=== PATIENT | male | born 1965 | race Caucasian/White ===

== ENCOUNTER 2024-11-30 12:54 | Outpatient (REF) | payer OTHER, SELFPAY ==
--- OUTSIDE RECORDS SUMMARY | 2024-01-03 04:15 | XMS_ITS ---
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 Role Phone Marissa Hernandez Primary Care Provid er Unavailable Norman Hussein Unavailable [phone] Albert Lopez [phone] Encounters Encounter Location Date Provider Diagnosis [facility] [address] [address] 01/03/2024 Albert Lopez Plan Of Treatment Next Appt Details Provider Name:Norman Hussein , 01/28/2025 09:45:00 AM, [address], [phone], Progress Notes * Balaji KUDOB:[birth year] (59 yo M)Acc No.[id number]:01/03/2024 Progress Note Patient: Balaji CHASE Provider: Tiffany Vasquez DPM :1965 A ge:58 Y S ex:Male Date:01/03/2024 Address:[address] [place], [place] [id number] Pcp:Marissa prater Subjective: * Chief Complaints: * * Medical History: Objective: * Vitals: Assessment: Plan: * Treatment: * Images: * The named appointment provid er may or may not be the originator of this progress note, and it is not deemed complete until electronically signed by the appointment provider. Sign off status: Pending * Provider: Tiffany Vasquez DPM Date: 03/04/2023 Generated for Roc bansal/Kit/Leidy on: 02:55 PM EDT
--- OUTSIDE RECORDS SUMMARY | 2024-01-03 05:00 | XMS_ITS ---
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 Role Phone Marissa Hernandez Primary Care Provid er Unavailable Keenan Norman Unavailable [phone] Cassie Syed [phone] REASON FOR VISIT HNE Encounters Encounter Location Date Provider Diagnosis [facility] [address] [place] [id number] 01/03/2024 Cassie Syed Plan Of Treatment Next Appt Details Provider Name:Norman Hussein , 01/28/2025 09:45:00 AM, [address], [address], Progress Notes * Balaji KUDOB:[birth year] (59 yo M)Acc No.[id number]:01/03/2024 Progress Note Patient: Balaji CHASE Provider: Jimbo Syed DPM :1965 A ge:58 Y S ex:Male Date:01/03/2024 Address:[address] [place], [place] [id number] Pcp:Marissa prater Subjective: * Chief Complaints: * 1 . HNE. * Medical History: Objective: * Vitals: Assessment: Plan: * Treatment: * Images: * The named appointment provid er may or may not be the originator of this progress note, and it is not deemed complete until electronically signed by the appointment provider. Sign off status: Pending * Provider: Jimbo Syed, PABLO Date: 03/04/2023 Generated for Roc bansal/Kit/Leidy on: 02:55 PM EDT
--- OUTSIDE RECORDS SUMMARY | 2024-11-27 05:00 | XMS_ITS ---
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 Name Role Phone SEUN PAREDES Unavailable [phone] IVETTE MADHAVI Unavailable [phone] Allergies Allergen (clinical drug ingredient) Drug/Non Drug Allergy documented on EMR Reaction Allergy Type Onset Date Status Penicillin Unknown Drug Allergy Active Shellfish (FN) Shellfish-derived Products shortness of breath Drug Allergy Active REASON FOR VISIT pt is here for f/u visit with FMLA paperwork to be filled out Medications Medication SIG (Take, Route, Frequency, Duration) Notes Start Date End Date Status Atorvastatin Calcium 40 MG TAKE 1 TABLET BY MOUTH EVERY DAY; Duration: 90 Active predniSONE 10 MG 5 tablets once a day for 2 days, 4 tablets once a day for 2 days, 3 tablets once a day for 2 days, 2 tablets once a day for 2 days, 1 tablet once a day for 2 days Orally Once a day; Duration: 10 days 10/15/2024 Active Fluticasone Propionate 50 MCG/ACT 1 spray in each nostril Nasally Once a day; Duration: 60 days Active Wixela Inhub 250-50 MCG/ACT 1 puff Inhalation Twice a day; Duration: 30 days Active tiZANidine HCl 4 MG 1/2-1 tablet as need ed for spasm Orally Three times a day; Duration: 10 days 10/15/2024 Active Albuterol Sulfate HFA 108 (90 Base) MCG/ACT 1 puff as needed Inhalation every 4 hrs; Duration: 16 days Active Lisinopril 5 MG 1 tablet Orally Once a day; Duration: 90 days Active Allergy Relief 180 MG 1 tablet as needed Orally Once a day; Duration: 30 Active HumuLIN N 100 UNIT/ML Subcutaneous; Dura tion: 30 Active HumaLOG Mix 75/25 (75-25) 100 UNIT/ML ADMINISTER 60 UNITS UNDER THE SKIN EVERY DAY Subcutaneous; Duration: 83 Active Ibuprofen 800mg q8h Active HumaLOG 100 UNIT/ML Injection; Duration: 28 Active Social History Tobacco Use: Social History Observation Description Date Details (start date - stop date) Never Smoker NA - NA Tobacco Use/Smoking Question Answer Notes Are you a nonsmoker Vital Signs Heart Rate 74 /min 11/27/2024 Blood pressure systolic 128 mm Hg 11/28/19 25 Blood pressure diastolic 82 mm Hg 025 Weight 356.1 lbs 11/27/2024 BMI 49.66 kg/m2 11/27/2024 Height 71 in 11/27/2024 Oximetry 96 % 11/27/2024 Encounters Encounter Location Date Provider Diagnosis [address] [facility] [address] [place] [address] 11/27/2024 MADHAVI STEELE Type 2 diabetes guanako itus without complications E11.9 ; half-way (current) use of insulin Z79.4 ; Essential (primary) hypertension I10 ; Pure hypercholesterolemia E78.00 ; Morbid obesity E66.01 ; PIYUSH (obstructive sleep apnea) G47.33 ; Lumbago with sciatica, left side M54.42 ; Lumbago with sciatica, right side M54.41 ; Encounter for examination of blood pressure without abnormal findings Z01.30 and Seasonal allergic rhinitis, unspecified trigger J30.2 Assessments Encounter Date Diagnosis (ICD Code) Assessment Notes Treatment Notes Treatment Clinical Notes Section Notes 11/27/2024 Type 2 diabetes mellitus without complications (ICD-10 - E11.9) Acute Concerns/Proble m List: 11/27/2024 Patient has been seen for multiple visits in the past for FMLA paperwork We will give him continuous leave October 30, 2024 until December 24, 2024 and likely should be able to return December 25, 2024 to work Scheduled for spinal injections in the upcoming weeks with PSP 1 year DOT card labs reviewed Patient Interested in Coronary Calcium CT, will RX to [facility] Refilled Wixela, Fluticasone Propionate Suspension. _update Cologuard Of note, some information is being carried forward from prior records for informational purposes only and is being cited so that efficiency, safety and quality of the patient's care is not compromised This note was prepared using voice recognition software and direct typing Please excuse inadvertent heel burnisher or typing errors, or uncorrected word substitutions Although every attempt has been made by the provider to proofread this document, occasional misspellings and typographical errors may still be present Due to the previous pandemic, and the use of personal protective equipment (PPE) This may decrease voice recognition accuracy Inadvertent heel burnisher errors may occur 11/27/2024 half-way (current) use of insulin (ICD-10 - Z79.4) Acute Concerns/Proble m List: 11/27/2024 Patient has been seen for multiple visits in the past for FMLA paperwork We will give him continuous leave October 30, 2024 until December 24, 2024 and likely should be able to return December 25, 2024 to work Scheduled for spinal injections in the upcoming weeks with PSP 1 year DOT card labs reviewed Patient Interested [facility]cium [facility], Fluticasone Propionate Suspension. _update Cologuard Of note, some information is being carried forward from prior records for informational purposes only and is being cited so that efficiency, safety and quality of the patient's care is not compromised This note was prepared using voice recognition software and direct typing Please excuse inadvertent heel burnisher or typing errors, or uncorrected word substitutions Although every attempt has been made by the provider to proofread this document, occasional misspellings and typographical errors may still be present Due to the previous pandemic, and the use of personal protective equipment (PPE) This may decrease voice recognition accuracy Inadvertent heel burnisher errors may occur 11/27/2024 Essential (primary) hypertension (ICD-10 - I10) Acute Concerns/Proble m List: 11/27/2024 Patient has been seen for multiple visits in the past for FMLA paperwork We will give him continuous leave October 30, 2024 until December 24, 2024 and likely should be able to return December 25, 2024 to work Scheduled for spinal injections in the upcoming weeks with PSP 1 year DOT card labs reviewed Patient Interested in Coronary Calcium CT, will RX to [facility] Refilled Wixela, Fluticasone Propionate Suspension. _update Cologuard Of note, some information is being carried forward from prior records for informational purposes only and is being cited so that efficiency, safety and quality of the patient's care is not compromised This note was prepared using voice recognition software and direct typing Please excuse inadvertent heel burnisher or typing errors, or uncorrected word substitutions Although every attempt has been made by the provider to proofread this document, occasional misspellings and typographical errors may still be present Due to the previous pandemic, and the use of personal protective equipment (PPE) This may decrease voice recognition accuracy Inadvertent heel burnisher errors may occur 11/27/2024 Pure hypercholesterolemia (ICD-10 - E78.00) Acute Concerns/Proble m List: 11/27/2024 Patient has been seen for multiple visits in the past for FMLA paperwork We will give him continuous leave October 30, 2024 until December 24, 2024 and likely should be able to return December 25, 2024 to work Scheduled for spinal injections in the upcoming weeks with PSP 1 year DOT card labs reviewed Patient Interested in Coronary Calcium CT, will RX to [facility] Refilled Wixela, Fluticasone Propionate Suspension. _update Cologuard Of note, some information is being carried forward from prior records for informational purposes only and is being cited so that efficiency, safety and quality of the patient's care is not compromised This note was prepared using voice recognition software and direct typing Please excuse inadvertent heel burnisher or typing errors, or uncorrected word substitutions Although every attempt has been made by the provider to proofread this document, occasional misspellings and typographical errors may still be present Due to the previous pandemic, and the use of personal protective equipment (PPE) This may decrease voice recognition accuracy Inadvertent heel burnisher errors may occur 11/27/2024 Morbid obesity (ICD- 10 - E66.01) Acute Concerns/Proble m List: 11/27/2024 Patient has been seen for multiple visits in the past for FMLA paperwork We will give him continuous leave October 30, 2024 until December 24, 2024 and likely should be able to return December 25, 2024 to work Scheduled for spinal injections in the upcoming weeks with PSP 1 year DOT card labs reviewed Patient Interested in Coronary Calcium CT, will RX to [facility] Refilled Wixela, Fluticasone Propionate Suspension. _update Cologuard Of note, some information is being carried forward from prior records for informational purposes only and is being cited so that efficiency, safety and quality of the patient's care is not compromised This note was prepared using voice recognition software and direct typing Please excuse inadvertent heel burnisher or typing errors, or uncorrected word substitutions Although every attempt has been made by the provider to proofread this document, occasional misspellings and typographical errors may still be present Due to the previous pandemic, and the use of personal protective equipment (PPE) This may decrease voice recognition accuracy Inadvertent heel burnisher errors may occur 11/27/2024 PIYUSH (obstructive sle ep apnea) (ICD-10 - G47.33) Acute Concerns/Proble m List: 11/27/2024 Patient has been seen for multiple visits in the past for FMLA paperwork We will give him continuous leave October 30, 2024 until December 24, 2024 and likely should be able to return December 25, 2024 to work Scheduled for spinal injections in the upcoming weeks with PSP 1 year DOT card labs reviewed Patient Interested in Coronary Calcium CT[facility], Fluticasone Propionate Suspension. _update Cologuard Of note, some information is being carried forward from prior records for informational purposes only and is being cited so that efficiency, safety and quality of the patient's care is not compromised This note was prepared using voice recognition software and direct typing Please excuse inadvertent heel burnisher or typing errors, or uncorrected word substitutions Although every attempt has been made by the provider to proofread this document, occasional misspellings and typographical errors may still be present Due to the previous pandemic, and the use of personal protective equipment (PPE) This may decrease voice recognition accuracy Inadvertent heel burnisher errors may occur 11/27/2024 Lumbago with sciatic a, left side (ICD-10 - M54.42) Acute Concerns/Proble m List: 11/27/2024 Patient has been seen for multiple visits in the past for FMLA paperwork We will give him continuous leave October 30, 2024 until December 24, 2024 and likely should be able to return December 25, 2024 to work Scheduled for spinal injections in the upcoming weeks with PSP 1 year DOT card labs reviewed Patient Interested in Coronary Calcium CT, will RX to [facility] Refilled Wixela, Fluticasone Propionate Suspension. _update Cologuard Of note, some information is being carried forward from prior records for informational purposes only and is being cited so that efficiency, safety and quality of the patient's care is not compromised This note was prepared using voice recognition software and direct typing Please excuse inadvertent heel burnisher or typing errors, or uncorrected word substitutions Although every attempt has been made by the provider to proofread this document, occasional misspellings and typographical errors may still be present Due to the previous pandemic, and the use of personal protective equipment (PPE) This may decrease voice recognition accuracy Inadvertent heel burnisher errors may occur 11/27/2024 Lumbago with sciatic a, right side (ICD-10 - M54.41) Acute Concerns/Proble m List: 11/27/2024 Patient has been seen for multiple visits in the past for FMLA paperwork We will give him continuous leave October 30, 2024 until December 24, 2024 and likely should be able to return December 25, 2024 to work Scheduled for spinal injections in the upcoming weeks with PSP 1 year DOT card labs reviewed Patient Interested in [facility]ary Calcium CT[facility], Fluticasone Propionate Suspension. _update Cologuard Of note, some information is being carried forward from prior records for informational purposes only and is being cited so that efficiency, safety and quality of the patient's care is not compromised This note was prepared using voice recognition software and direct typing Please excuse inadvertent heel burnisher or typing errors, or uncorrected word substitutions Although every attempt has been made by the provider to proofread this document, occasional misspellings and typographical errors may still be present Due to the previous pandemic, and the use of personal protective equipment (PPE) This may decrease voice recognition accuracy Inadvertent heel burnisher errors may occur 11/27/2024 Encounter for examination of blood pressure without abnormal findings (ICD-10 - Z01.30) Acute Concerns/Proble m List: 11/27/2024 Patient has been seen for multiple visits in the past for FMLA paperwork We will give him continuous leave October 30, 2024 until December 24, 2024 and likely should be able to return December 25, 2024 to work Scheduled for spinal injections in the upcoming weeks with PSP 1 year DOT card labs reviewed Patient Interested in Coronary Calcium CT, will RX to [facility] Refilled Wixela, Fluticasone Propionate Suspension. _update Cologuard Of note, some information is being carried forward from prior records for informational purposes only and is being cited so that efficiency, safety and quality of the patient's care is not compromised This note was prepared using voice recognition software and direct typing Please excuse inadvertent heel burnisher or typing errors, or uncorrected word substitutions Although every attempt has been made by the provider to proofread this document, occasional misspellings and typographical errors may still be present Due to the previous pandemic, and the use of personal protective equipment (PPE) This may decrease voice recognition accuracy Inadvertent heel burnisher errors may occur 11/27/2024 Seasonal allergic rhinitis, unspecified trigger (ICD-10 - J30.2) Acute Concerns/Proble m List: 11/27/2024 Patient has been seen for multiple visits in the past for FMLA paperwork We will give him continuous leave October 30, 2024 until December 24, 2024 and likely should be able to return December 25, 2024 to work Scheduled for spinal injections in the upcoming weeks with PSP 1 year DOT card labs reviewed Patient Interested in Coronary Calcium CT, will RX to [facility] Refilled Wixela, Fluticasone Propionate Suspension. _update Cologuard Of note, some information is being carried forward from prior records for informational purposes only and is being cited so that efficiency, safety and quality of the patient's care is not compromised This note was prepared using voice recognition software and direct typing Please excuse inadvertent heel burnisher or typing errors, or uncorrected word substitutions Although every attempt has been made by the provider to proofread this document, occasional misspellings and typographical errors may still be present Due to the previous pandemic, and the use of personal protective equipment (PPE) This may decrease voice recognition accuracy Inadvertent heel burnisher errors may occur Plan Of Treatment No Information Progress Notes * SAM KUDOB:[birth year] (59 yo M)Acc No.[id number]:11/27/2024 Progress Notes Patient: SAM CHASE Provider: Timbo STEELE NP :1965 A ge:59 Y S ex:Male Date:11/27/2024 Address:[address] [place] [address], [place], [id number] Subjective: * Chief Complaints: * 1 . pt is here for f/u visit with FMLA paperwork to be filled out. * HPI: C onstitutional: Patient is here today for FMLA examination Patient seen and examined. F ull past medical history, social history, family history, allergies and current medications were reviewed and updated. Acute Concerns/Problem List: 11/27/2024 Here today for updated FMLA continuous leave October 30, 2024 until December 24, 2024 He is scheduled to get spinal injections in the upcoming weeks with physiatry/pain mgt PSSP Not interested in neuromodulating agent such as gabapentin or Lyrica He has been treated with steroid tapers, by me, Previously was seen to help Was referred to hand surgery for CTS evaluation He gets DOT examinations through me sees [facility] for bilat knee OA/pain gets injections Orthopedics defer surgery at this time Patient has been making lifestyle modifications, choosing better dietary options, exercising. Refuses to go on medication for weight management and states, Ill do it myself . 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 PIYUSH, Pt states he's compliant with CPAP a few hours at a time a night. HTN, BP stable today, on lisinopril, averages 120-130's/80. Stable in office today at 130/78. DM2, Sees endocriniologist Irasema Castro for DM2. currently on basal, mealtime insulin regimen only I did discuss with him options that are eqm-txxuyur-eniyvfymm including metformin and GLP-1 for weight loss. Blood sugars at home 120-150s, well controlled. HLD: Lipid panel improved with atorvastatin. Interested in Coronary Calcium CT Comprehensive labs June 2024 CBC is stable Renal function electrolytes and LFTs are stable Hemoglobin A1c of 7.6 Total cholesterol 121, LDL 60, HDL 47, triglycerides 69 total PSA 0.97 TSH 1.64 UA mostly unremarkable Vitamin D 19 Social hx: tobacco- occ. cigar use. ETOH- denies. lives with who is a nurse Health Maintenance- Cscope-2021- Cologuard, Negative results. 07/05/2021, due 2024 COVID vax: Giulia + moderna booster Flu- 2024 UTD Shingrix- Defers Diabetic optho- UTD, April 20[address] [facility] Podiatry- UTD, Next appt in Dec 2024. * ROS: A ll Other Systems: Review of Systems (ROS) A ll others negative except those mentioned in HPI. * Medical History: H ypertension, type II diabetes, Allergic rhinitis, Asthma. * Surgical History: l ower back , mason shoulder , right knee , laminectomy . * Hospitalization/Major Diagno stic Procedure: D enies Past Hospitalization. * Family History: F ather: alive. M other: alive. 1 brother(s) , 2 sister(s) . 1 daughter(s) . . mom dm dad dm. * Social History: T obacco Use: T obacco Use/Smoking A re you a n onsmoker. * Medications: T aking Ibuprofen , Notes to Pharmacist: 800mg q8h, Taking HumaLOG 100 UNIT/ML Solution Injection , Taking HumuLIN N 100 UNIT/ML Suspension Subcutaneous , Taking HumaLOG Mix 75/25 (75-25) 100 UNIT/ML Suspension ADMINISTER 60 UNITS UNDER THE SKIN EVERY DAY Subcutaneous , Taking Allergy Relief 180 MG Tablet 1 tablet as needed Orally Once a day , Taking Albuterol Sulfate HFA 108 (90 Base) MCG/ACT Aerosol Solution 1 puff as needed Inhalation every 4 hrs , Taking Lisinopril 5 MG Tablet 1 tablet Orally Once a day , Taking Fluticasone Propionate 50 MCG/ACT Suspension 1 spray in each nostril Nasally Once a day , Taking Wixela Inhub 250-50 MCG/ACT Aerosol Powder Breath Activated 1 puff Inhalation Twice a day , Taking Atorvastatin Calcium 40 MG Tablet TAKE 1 TABLET BY MOUTH EVERY DAY , Taking predniSONE 10 MG Tablet 5 tablets once a day for 2 days, 4 tablets once a day for 2 days, 3 tablets once a day for 2 days, 2 tablets once a day for 2 days, 1 tablet once a day for 2 days Orally Once a day , Taking tiZANidine HCl 4 MG Tablet 1/2-1 tablet as needed for spasm Orally Three times a day , Medication List reviewed and reconciled with the patient * Allergies: P enicillin, Shellfish-derived Products: shortness of breath. Objective: * Vitals: H R:74/min, BP:128/82mm Hg, Wt:356.1lbs, BMI:49.66Index, Ht: 71 in, Oxygen sat %:96%. * Examination: G eneral Examination: GENERAL APPEARANCE: i n no acute distress, well developed, well nourished. H EAD: n ormocephalic, atraumatic. E YES: p upils equal, round, reactive to light and accommodation. E ARS: n ormal. O RAL CAVITY: m ucosa moist. T HROAT: c lear. N NIMESH/THYROID: n nimesh supple, full range of motion, no cervical lymphadenopathy. S KIN: n o suspicious lesions, warm and dry. H EART: n o murmurs, regular rate and rhythm, S1, S2 normal. L UNGS: c lear to auscultation bilaterally. A BDOMEN: n ormal, bowel sounds present, soft, nontender, nondistended. E XTREMITIES: n o clubbing, cyanosis, or edema Limited range of motion, hypertonicity and spasm noted to the left paraspinous region lumbarPositive SLR, Left-sided left-sided Positive Phalen's left hand. N EUROLOGIC: n onfocal, motor strength normal upper and lower extremities, sensory exam intact. ? Assessment: * Assessment: 1. T ype 2 diabetes mellitus without complications - E11.9 2 . L zoey term (current) use of insulin - Z79.4 3 . E ssential (primary) hypertension - I10 4 . P ure hypercholesterolemia - E78.00 5 . M orbid obesity - E66.01 6 . O SA (obstructive sleep apnea) - G47.33 7 . L umbago with sciatica, left side - M54.42 8 . L umbago with sciatica, right side - M54.41 9 . E ncounter for examination of blood pressure without abnormal findings - Z01.30 1 0. S easonal allergic rhinitis, unspecified trigger - J30.2 Acute Concerns/Problem List: 11/27/2024 Patient has been seen for multiple visits in the past for [place] paperwork We will give him continuous leave October 30, 2024 until December 24, 2024 and likely should be able to return December 25, 2024 to work Scheduled for spinal injections in the upcoming weeks with PSP 1 year DOT card labs reviewed Patient Interested in Coronary Calcium CT, will RX to [facility] Refilled Wixela, Fluticasone Propionate Suspension. _update Cologuard Of note, some information is being carried forward from prior records for informational purposes only and is being cited so that efficiency, safety and quality of the patient's care is not compromised This note was prepared using voice recognition software and direct typing Please excuse inadvertent heel burnisher or typing errors, or uncorrected word substitutions Although every attempt has been made by the provider to proofread this document, occasional misspellings and typographical errors may still be present Due to the previous pandemic, and the use of personal protective equipment (PPE) This may decrease voice recognition accuracy Inadvertent heel burnisher errors may occur Plan: * Treatment: * Procedure Codes: 3 074F SYST BP LT 130 MM HG, 3079F DIAST BP 80-89 MM HG * Images: Billing Information: * Visit Code: 19840 Office Visit, Est Pt., Level 4. Modifiers: SA * Procedure Codes: 3074F SYST BP LT 130 MM HG. 3079F DIAST BP 80-89 MM HG. Care Plan Details* * Sign off status: Completed true * Provider: Timbo STEELE NP Date: Generated for Roc bansal/Kit/Leidy on: 02:55 PM EDT History and Physical Notes * HPI (History of Present Illness) Category Sub-Category Detail Notes Category Not es Constitutional Patient is here today for FMLA examination Patient seen and examined. Full past medical history, social history, family history, allergies and current medications were reviewed and updated. Acute Concerns/Problem List: 11/27/2024 Here today for updated FMLA continuous leave October 30, 2024 until December 24, 2024 He is scheduled to get spinal injections in the upcoming weeks with physiatry/pain mgt PSSP Not interested in neuromodulating agent such as gabapentin or Lyrica He has been treated with steroid tapers, by me, Previously was seen to help Was referred to hand surgery for CTS evaluation He gets DOT examinations through me sees [facility] for bilat knee OA/pain gets injections Orthopedics defer surgery at this time Patient has been making lifestyle modifications, choosing better dietary options, exercising. Refuses to go on medication for weight management and states, Ill do it myself . 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 PIYUSH, Pt states he's compliant with CPAP a few hours at a time a night. HTN, BP stable today, on lisinopril, averages 120-130's/80. Stable in office today at 130/78. DM2, Sees endocriniologist Irasema Castro for DM2. currently on basal, mealtime insulin regimen only I did discuss with him options that are [id number] including metformin and GLP-1 for weight loss. Blood sugars at home 120-150s, well controlled. HLD: Lipid panel improved with atorvastatin. Interested in Coronary Calcium CT Comprehensive labs June 2024 CBC is stable Renal function electrolytes and LFTs are stable Hemoglobin A1c of 7.6 Total cholesterol 121, LDL 60, HDL 47, triglycerides 69 total PSA 0.97 TSH 1.64 UA mostly unremarkable Vitamin D 19 Social hx: tobacco- occ. cigar use. ETOH- denies. lives with who is a nurse Health Maintenance- Cscope-2021- Cologuard, Negative results. 07/05/2021, due 2024 COVID vax: Giulia + moderna booster Flu- 2024 UTD Shingrix- Defers Diabetic optho- UTD, April 2024 [facility]- UTD, Next appt in Dec 2024. Examination Category Sub-Category Detail Notes Category Not es General Examination GENERAL APPEARANCE: in no ac igiugig distress, well developed, well nourished HEAD: normocephalic, atrau matic EYES: pupils equal, round, reactive to light and accommodation EARS: normal THROAT: clear NECK/THYROID: neck supple, full ra nge of motion, no cervical lymphadenopathy HEART: no murmurs, regular rate and rhythm, S1, S2 normal LUNGS: clear to auscultatio n bilaterally ABDOMEN: normal, bowel sounds present, soft, nontender, nondistended NEUROLOGIC: nonfocal, motor stre ngth normal upper and lower extremities, sensory exam intact SKIN: no suspicious lesion s, warm and dry EXTREMITIES: no clubbing, cyanosi s, or edema Limited range of motion, hypertonicity and spasm noted to the left paraspinous region lumbarPositive SLR, Left-sided left-sided Positive Phalen's left hand ORAL CAVITY: mucosa moist
--- NOTE | 2024-11-30 | EMG_ITS ---
Chief complaint: Left hand numbness Reason for referral: Evaluate for carpal tunnel versus ulnar neuropathy Referred by: Ivone MYERS Procedure done: Left upper extremity NCS/EMG Precautions and/or limitations: None The limb temperature was monitored continuously and remained between 32-36 degrees C during the performance of the NCS. Ulnar motor NCS was performed with moderate elbow flexion between 70-90 degrees, with across-elbow distance of 10 cm. Nerve Conduction Studies Anti Sensory Summary Table ?Stim Site NR Onset (ms) Norm Onset (ms) Peak (ms) Norm Peak (ms) O-P Amp (?V) Norm O-P Amp Site1 Site2 Delta-0 (ms) Dist (cm) Sandoval (m/s) Norm Sandoval (m/s) Left DorsCutan Anti Sensory (Dorsum 5th MC) Wrist NR Wrist Dorsum 5th MC 0.0 Left Median Anti Sensory (2nd Digit) Wrist ? 4.2 5.2 <3.6 15.4 >10 Wrist 2nd Digit 4.2 14.0 33 Left Radial Anti Sensory (Thumb) Forearm ? 1.6 2.4 <3.1 27.0 Forearm Thumb 1.6 0.0 Left Ulnar Anti Sensory (5th Digit) Wrist ? 2.4 3.2 <3.7 8.8 >15.0 Wrist 5th Digit 2.4 14.0 58 Motor Summary Table ?Stim Site NR Onset (ms) Norm Onset (ms) O-P Amp (mV) Norm O-P Amp iAmp (mV) Amp (1st) (%) Site1 Site2 Delta-0 (ms) Dist (cm) Sandoval (m/s) Norm Sandoval (m/s) Left Median Motor (Abd Poll Brev) Wrist ? 5.1 <3.9 6.4 >4.5 8.0 100.0 Elbow Wrist 4.7 24.0 51 >45 Elbow ? 9.8 3.8 4.7 59.4 Left Ulnar Motor (Abd Dig Minimi) Wrist ? 2.8 <3.0 10.9 >5 12.6 100.0 B Elbow Wrist 4.6 24.5 53 >45 B Elbow ? 7.4 10.2 12.5 93.6 A Elbow B Elbow 1.8 10.0 56 >45 A Elbow ? 9.2 9.9 12.2 90.8 Left Ulnar (FDI) Motor (FDI) Wrist ? 3.8 <3.0 9.2 >5 11.0 100.0 B Elbow Wrist 5.0 25.0 50 >45 B Elbow ? 8.8 8.0 9.7 87.0 A Elbow B Elbow 1.7 10.0 59 >45 A Elbow ? 10.5 8.2 9.7 89.1 EMG ?Side Muscle Nerve Root Ins Act Fibs Psw Amp Dur Poly Recrt Int Pat Comment Left 1stDorInt Ulnar C8-T1 Nml Nml Nml Nml Nml 0 Nml Complete Left FlexCarpiUln Ulnar C8,T1 Nml Nml Nml Nml Nml 0 Nml Complete Left Biceps Musculocut C5-6 Nml Nml Nml Nml Nml 0 Nml Complete Left Triceps Radial C6-7-8 Nml Nml Nml Nml Nml 0 Nml Complete Left Deltoid Axillary C5-6 Nml Nml Nml Nml Nml 0 Nml Complete FINDINGS: Left median motor nerve showed prolonged distal latency, normal amplitude and normal conduction velocity. Left median sensory nerve showed prolonged peak latencies. Left ulnar motor nerve, recording at FDI, showed prolonged distal latency, normal amplitude and normal conduction velocity. Left ulnar sensory nerve showed normal peak latency but small amplitude. Left DUCS showed absent response absent response. All other nerves tested were within normal. Concentric needle EMG was performed in selected muscles of the left upper extremity. Study did not reveal signs of electric abnormalities as shown in the table above. IMPRESSION: 1. This is an abnormal study. 2. There is electrodiagnostic evidence for left moderate-severe median neuropathy at the wrist, consistent with Carpal Tunnel Syndrome. 3. There is electrodiagnostic evidence for left ulnar neuropathy at the elbow or at least proximal to take off of dorsal ulnar cutaneous sensory nerve 4. There is no electrodiagnostic evidence for brachial plexopathy or cervical radiculopathy. Thank you for your kind referral. Carla Clifton MD, DESEAN Board Certified, [place] [employer] and [employer] (ABPMR) Board Certified, [place] Board [employer] Electrodiagnostic Medicine (ABEM) CODIN [id number], 1 extremity MTDD
--- OUTSIDE RECORDS SUMMARY | 2024-11-30 14:55 | XMS_ITS | Clinical Summary ---
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 Active fluticasone propionate (FLONASE) 50 mcg/actuation nasal spray Administer 1 spray into each nostril 1 (one) time each day. Active HumaLOG U-100 Insulin 100 unit/mL injection INJECT 26 TO 33 UNITS UNDER THE SKIN BEFORE SUPPER DIRECTED Active HumuLIN N NPH U-100 Insulin 100 unit/mL injection ADMINISTER 66 UNITS UNDER THE SKIN EVERY NIGHT. Active lisinopriL (PRINIVIL,ZESTR IL) 5 mg tablet 3 Active predniSONE (DELTASONE) 20 mg tablet Take 3 tab by mouth for 2 days, then 2 tab by mouth for 2 days, then 1 tab by mouth for 2 days. Take with food in the morning. 12 tablet 5 Active Additional Information Patient not taking.Reported on 11/07/2024 tiZANidine (ZANAFLEX) 4 mg tablet Take 1 tablet (4 mg total) by mouth 3 (three) times a day if needed for muscle spasms. Do not drive or operate machinery on this medication. 30 tablet Active Encounters Date Type Department Care Team Description 11/07/2024 2:00 PM EDT Consult Orthopedic Surgery - [place] [address] [place] [address] Ivone Hawley PA Numbness and tingling in left hand (Primary Dx) 10/26/2024 2:59 PM EDT - 10/26/2024 11:59 PM EDT [facility] [address] [place] [address] Acute left-sided low back pain without sciatica Discharge Disposition: Home or Self Care 10/26/2024 2:15 PM EDT Office Visit Walk-In Clinic - [address] [phone] Frederic Gamez PA Acute left-sided low back pain without sciatica (Primary Dx) from Last 3 Months Social History Tobacco Use Types Packs/Day Years Used Date Smoking Tobacco: Never Assessed Housing Instability Answer Date Recorde d Are you worried that in the next 2 months you may not have stable housing? Patient declined 10/26/2024 Food Access & Nutrition Answer Date Rec orded Do you have access to a vari ety of food including fruits and vegetables? Patient declined 10/26/2024 Health Literacy Answer Date Recorded How often do you need to hav e someone help you when you read instructions, pamphlets, or other written material from your doctor or pharmacy? Patient declined 10/26/2024 Caregiver: How often do you need to have someone help you when you read instructions, pamphlets, or other written material from your doctor or pharmacy? Not on file 025 Financial Risk Answer Date Recorded How hard is it for you to pa y for the very basics like food, housing, medical care, and air conditioning / heating? Patient declined 10/26/2024 Transportation Answer Date Recorded Has the lack of transportati on kept you from meetings, work, or from getting things needed for daily living? Patient declined 10/26/2024 Has the lack of transportati on kept you from medical appointments or from getting medications? Patient declined 10/26/2024 Social Isolation Answer Date Recorded How often do you feel lonely or isolated from those around you? Patient declined 10/26/2024 Food Risk Answer Date Recorded Within the past 12 months we worried whether our food would run out before we got money to buy more. Never true 10/26/2024 Within the past 12 months th e food we bought just didn't last and we didn't have money to get more. Never true 10/26/2024 Dependent Care Answer Date Recorded Do you need help finding or paying for care for your loved ones. For example, child and family services specialist or elderly care for an older adult? Patient declined 10/26/2024 Education Answer Date Recorded Do you think completing more education or training, like finishing a GED, going to college, or learning a trade, would be helpful for you? Patient declined 10/26/2024 Employment and Income Answer Date Recor ded During the last four weeks, have you been actively looking for work? Patient declined 10/26/2024 Living Situation Answer Date Recorded What is your living situation? Unrecognized valu e 10/26/2024 Sex and Gender Information Value Date Recorded Sex Assigned at Not on file Legal Sex Male 11:36 PM EST Gender Identity Not on file Sexual Orientation Not on file Last Filed Vital Signs Vital Sign Reading Time Taken Comments Blood Pressure 137/74 10/26/2024 2:24 PM EDT Pulse 67 10/26/2024 2:24 PM EDT Temperature 36.7 C (98 F) 10/26/2024 2:24 PM EDT Respiratory Rate - - Oxygen Saturation 99% 10/26/2024 2:24 PM EDT Inhaled Oxygen Concentration - - Weight 154 kg (340 lb) 11/07/2024 1:57 PM EDT Height 182.9 cm (6') 11/07/2024 1:57 PM EDT Body Mass Index 46.11 11/07/2024 1:57 PM EDT Plan of Treatment Health Maintenance Due Date Last Done Comments Colorectal Cancer Screening: Colonoscopy 1964 Diabetes: Annual Foot Exam 1974 Diabetes: Annual Retina Eye Exam 1974 DTaP,Tdap,and Td Vaccines (1 - Tdap) 10/19/1983 Hepatitis A Vaccines (1 of 2 - Risk 2-dose series) 10/19/1983 Pneumococcal Vaccine: 50+ Years (2 of 2 - PCV) 11/02/2008 11/03/2007 RSV Immunization Adult Patients (1 - Risk 50-74 years 1-dose series) 2014 Zoster Vaccines (1 of 2) 2014 HIV Screening 01/10/2022 Hepatitis C Screening 01/10/2022 Depression Screening 02/08/2024 Diabetes: Annual Urine Albumin-Creatinine Ratio (uACR) 06/19/2024 COVID-19 Vaccine (4 - 2024-2 6 season) 2024 11/09/2022, 01/22/2021, 06/20/2020 Influenza Vaccine (#1) 2024 , 11/25/2021 Hepatitis B Vaccines (1 of 3 - Risk 3-dose series) 2024 Diabetes: Blood Sugar Contro l Test (HGBA1C) 12/19/2024 06/18/2024 Diabetes: Annual GFR (Glomerular Filtration Rate) 06/18/2025 06/18/2024 Hypertension/CHF/CAD Annual BMP Blood Test 06/18/2025 06/18/2024 Social Influencers of Health Screening 10/26/2025 10/26/2024 Cholesterol Screening (Lipid Panel) 06/18/2029 06/18/2024 HIB Vaccines Aged Out No longer eligi ble based on patient's age to complete this topic HPV Vaccines Aged Out No longer eligi ble based on patient's age to complete this topic IPV Vaccines Aged Out No longer eligi ble based on patient's age to complete this topic MMR Vaccines Aged Out No longer eligi ble based on patient's age to complete this topic Meningococcal ACWY Vaccine Aged Out N o longer eligible based on patient's age to complete this topic Meningococcal B Vaccine Aged Out No l onger eligible based on patient's age to complete this topic RSV Immunization Patients Under 20 months Aged Out No longer eligible b ased on patient's age to complete this topic Varicella Vaccines Aged Out No longer eligible based on patient's age to complete this topic Procedures Procedure Name Priority Date/Time Associated Diagnosis Comments XR CERVICAL SPINE 2-3 VIEWS Routine 11/07/2024 2:39 PM EDT Numbness and tingling in left hand XR LUMBAR SPINE 4+ VIEWS STAT 10/26/2024 3:09 PM EDT Acute left-sided low back pain without sciatica COMPREHENSIVE METABOLIC PANEL Routine 06/18/2024 3:41 PM EDT Vitamin D deficiency disease Special screening for malignant neoplasms, colon Morbid obesity (CMS/HCC V24, CMS/HCC V28) Essential hypertension, benign Routine general medical examination at a health care facility Obstructive sleep apnea (adult) (pediatric) HEMOGLOBIN A1C Routine 06/18/2024 3:41 PM EDT Vitamin D deficiency disease Special screening for malignant neoplasms, colon Morbid obesity (CMS/HCC V24, CMS/HCC V28) Essential hypertension, benign Routine general medical examination at a health care facility Obstructive sleep apnea (adult) (pediatric) LIPID PANEL WITH REFLEX TO DIRECT LDL Routine 06/18/2024 3:41 PM EDT Vitamin D deficiency disease Special screening for malignant neoplasms, colon Morbid obesity (CMS/HCC V24, CMS/HCC V28) Essential hypertension, benign Routine general medical examination at a health care facility Obstructive sleep apnea (adult) (pediatric) from Last 3 Months or Most Recently Relevant to Health Maintenance Results * XR Cervical Spine 2-3 Views (11/07/2024 2:39 PM EDT) Anatomical Region Laterality Modality Spine, C-spine Computed Radiogr aphy Narrative 11/07/2024 7:31 PM EDT Date of Visit:11/07/2024 Reason for visit: Left hand paresthesias Views: AP lateral oblique cervical spine Comparison: None Findings: Neuroforaminal narrowing bilaterally, osteophyte formation at C6-C7 vertebral heights maintained, mild diffuse arthritic changes Impression: Osteoarthritis cervical spine us Ivone MYERS IMG XR PROCEDURES Final Resul t * XR Lumbar Spine 4+ Views (10/26/2024 3:09 PM EDT) Anatomical Region Laterality Modality Spine, L-spine Radiographic Dian ging 10/26/2024 4:28 PM EDT Narrative 10/26/2024 4:31 PM EDT Lumbosacral spine, 4 views. History acute flare of chronic pain. No prior studies are available for comparison. Vertebral bodies are maintained in height. There is narrowing of the disc spaces at L3-4 L4-5 and L5-S1 levels. There are marginal osteophytes at multiple levels more prominent to the right at L2-3 level and to the left at L3-4 level. There are hypertrophic degenerative changes in the facet joints at L4-5 and L5-S1 levels. No fractures, dislocations or destructive lesions. There are arm degenerative changes in the visualized lower thoracic segment with bridging osteophytes. CONCLUSIONS: Multilevel bony and discs degenerative changes as detailed. -------- FINAL REPORT -------- Dictated By: Dora Shi Dictated Date: 10/26/2024 16:28 ET Assigned Physician: Dora Shi Reviewed and Electronically Signed By: Dora Shi Signed Date: 10/26/2024 16:31 ET Workstation ID: [id number] Transcribed By: Self Edit Transcribed Date: 10/26/2024 16:28 ET Procedure Note Dora Shi MD - 10/26/2024 Lumbosacral spine, 4 views. History acute flare of chronic pain. No prior studies are available for comparison. Vertebral bodies are maintained in height. There is narrowing of the discspaces at L3-4 L4-5 and L5-S1 levels. There are marginal osteophytes atmultiple levels more prominent to the right at L2-3 level and to the leftat L3-4 level. There are hypertrophic degenerative changes in the facetjoints at L4-5 and L5-S1 levels. No fractures, dislocations or destructivelesions. There are arm degenerative changes in the visualized lower thoracicsegment with bridging osteophytes. CONCLUSIONS: Multilevel bony and discs degenerative changes as detailed. -------- FINAL REPORT -------- Dictated By: Dora Shi Dictated Date: 10/26/2024 16:28 ET Assigned Physician: Dora Shi Reviewed and Electronically Signed By: Dora Shi Signed Date: 10/26/2024 16:31 ET Workstation ID: [id number] Transcribed By: Self Edit Transcribed Date: 10/26/2024 16:28 ET us Frederic MYERS IMG XR PROCEDURES Final Re sult * Lipid panel with reflex to direct LDL (06/18/2024 3:41 PM EDT) Cholesterol 121 0 - 200 mg/dL LAB CHEMISTRY METHOD 06/18/2024 5:26 PM EDT [facility] Triglycerides 69 0 - 150 mg/dL LAB CHEMISTRY METHOD 06/18/2024 5:26 PM EDT [facility] HDL 47 >=40 mg/dL LAB CHEMISTRY METHOD 06/18/2024 5:26 PM EDT [facility] LDL Calculated 60 0 - 100 mg/dL LAB CHEMISTRY METHOD 06/18/2024 5:26 PM EDT [facility] VLDL Cholesterol Owen 13.8 mg/dL LAB CHEMISTRY METHOD 06/18/2024 5:26 PM EDT [facility] Non HDL Chol. (LDL+VLDL) 74 <145 mg/dL LAB CHEMISTRY METHOD 06/18/2024 5:26 PM EDT [facility] Chol/HDL Ratio 2.6 0.0 - 4.4 LAB CHEMISTRY METHOD 06/18/2024 5:26 PM EDT [facility] Blood Venous blood specimen / Unknown Venipuncture / Unknown 06/18/2024 3:41 PM EDT 06/18/2024 4:20 PM EDT us Adan Gonzalez TUBE FITTER LAB BLOOD ORDERABLES Final Re sult [facility] [address] [place] [address], [place] [phone] * (ABNORMAL) Hemoglobin A1c (06/18/2024 3:41 PM EDT) Hemoglobin A1C 7.6(H) <6.5 % LAB CHEMISTRY METHOD 06/18/2024 10:19 PM EDT [facility] Mean Bld Glu Estim. 171 mg/dL LAB CHEMISTRY METHOD 06/18/2024 10:19 PM [facility] Blood Venous blood specimen / Unknown Venipuncture / Unknown 06/18/2024 3:41 PM EDT 06/18/2024 4:19 PM EDT us Adan Gonzalez TUBE FITTER LAB BLOOD ORDERABLES Final Re sult [facility] [address] [place] [address], [place] [phone] * (ABNORMAL) Comprehensive metabolic panel (06/18/2024 3:41 PM EDT) [facility] Sodium 141 133 - 145 mmol/L LAB CHEMISTRY METHOD 06/18/2024 5:26 PM [facility] Potassium 4.0 3.5 - 5.5 mmol/L LAB CHEMISTRY METHOD 06/18/2024 5:26 PM [facility] Chloride 107 96 - 110 mmol/L LAB CHEMISTRY METHOD 06/18/2024 5:26 PM [facility] CO2 27 21 - 32 mmol/L LAB CHEMISTRY METHOD 06/18/2024 5:26 PM [facility] Anion Gap 7 3 - 11 LAB CHEMISTRY METHOD 06/18/2024 5:26 PM [facility] Glucose 117(H) 70 - 100 mg/dL LAB CHEMISTRY METHOD 06/18/2024 5:26 PM [facility] BUN 16 5 - 25 mg/dL LAB CHEMISTRY METHOD 06/18/2024 5:26 PM [facility] Creatinine 0.82 0.70 - 1.30 mg/dL LAB CHEMISTRY METHOD 06/18/2024 5:26 PM EDT [facility] eGFR 101 >=60 mL/min/1. 73m2 LAB CHEMISTRY METHOD 06/18/2024 5:26 PM T [facility] Comment:Calculation based on the Chronic Kidney Disease Epidemiology Collaboration (CKD-EPI) equation refit without adjustment for race. BUN/Creatinine Ratio 19.5 LAB CHEMISTRY METHOD 06/18/2024 5:26 PM T [facility] Calcium 9.0 8.5 - 10.5 mg/dL LAB CHEMISTRY METHOD 06/18/2024 5:26 PM [facility] AST (SGOT) 27 10 - 42 unit/L LAB CHEMISTRY METHOD 06/18/2024 5:26 PM [facility] ALT (SGPT) 57 10 - 60 unit/L LAB CHEMISTRY METHOD 06/18/2024 5:26 PM [facility] Alkaline Phosphatase 101 42 - 121 unit/L LAB CHEMISTRY METHOD 06/18/2024 5:26 PM [facility] Total Protein 6.7 6.0 - 8.0 g/dL LAB CHEMISTRY METHOD 06/18/2024 5:26 PM [facility] Albumin 3.6 3.2 - 5.0 g/dL LAB CHEMISTRY METHOD 06/18/2024 5:26 PM [facility] Total Bilirubin 0.6 0.0 - 1.4 mg/dL LAB CHEMISTRY METHOD 06/18/2024 5:26 PM T [facility] Blood Venous blood specimen / Unknown Venipuncture / Unknown 06/18/2024 3:41 PM EDT 06/18/2024 4:20 PM EDT us Adan Gonzalez NP LAB BLOOD ORDERABLES Final Re sult [facility] [address] [place] [address], [place] [phone] from Last 3 Months or Most Recently Relevant to Health Maintenance Insurance [facility] Care Teams Outside Plant 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
--- OUTSIDE RECORDS SUMMARY | 2024-11-30 14:55 | XMS_ITS | Patient Health Record ---
Author Organization [facility] Geronimo Ba Address [address] [place] [address] Care Team Providers Care Digital Cartographer Name Role Phone Marissa Hernandez Primary Care Provid er Unavailable Norman Hussein Unavailable [phone] Albert Lopez Unavailable [phone] Cassie Syed Unavailable [phone] Allergies Allergen (clinical drug ingredient) Drug/Non Drug Allergy documented on EMR Reaction Allergy Type Onset Date Status povidone-iodine Betadine Unknown Drug Allergy A ctive Penicillin cant take Drug Allergy Active Shellfish (FN) Shellfish-derived Products Unknown Drug Allergy Active Reason For Referral No Information Medications Medication SIG (Take, Route, Frequency, Duration) Notes Start Date End Date Status Flonase 50 MCG/ACT 2 sprays Nasally Onc e a day; Duration: 30 day(s) Active Advair Diskus Active Wixela Inhub Active Lisinopril 20 MG 1 tablet Orally Once a day; Duration: 30 day(s) Active HumuLIN N 100 UNIT/ML as directed Subcutaneous Active HumaLOG Mix 75/25 75-25 % as directed Subcutaneous Act yeimy HumuLIN R 100 UNIT/ML as directed Injection Not-Taking Flovent Diskus 50 MCG/BLIST 2 puffs Inhalation Twice a day Not-Taking Lovastatin 40 MG 1 tablet with a meal Orally Once a day; Duration: 30 day(s) Not-Taking Clotrimazole-Betamethas one 1-0.05 % 1 application to affected area Externally Twice a day to affected areas on feet; Duration: 30 days Not-Taki ng Immunizations Vaccine Route Administration Date Status Comme nts Influenza Unknown 12/28/2016 Refused Influenza Unknown 12/27/2017 Refused Influenza Unknown 12/15/2018 Administered Influenza Unknown 11/08/2019 Administered Social History Tobacco Use: Social History Observation Description Date Details (start date - stop date) Never Smoker NA - NA Tobacco Use/Smoking Question Answer Notes Are you a: nonsmoker Additional Findings: Tobacco Non-User Current no n-smoker Alcohol Screen Question Answer Notes Did you have a drink containing alcohol in the p ast year? Yes Points 0 Interpretation Negative Tobacco use other than smoking: Question Answer Notes Are you an other tobacco user? No Problems Problem Type SNOMED Code ICD Code Onset Dates Problem Status W/U Status Risk Notes Problem Type 2 diabetes mellitus with peripheral angiopathy (176256783) Type 2 diabetes mellitus with diabetic peripheral angiopathy without gangrene (E11.51) Active confirmed Q7(A), Q8(2B), Q9(1B,2C) Vital Signs Height 6ft 3in in 01/02/2024 Weight 348 lbs 01/02/2024 BMI 43.49 kg/m2 01/02/2024 Procedures Procedure Date Ordered Date Performed Result Body Sit e 23769-JFLENFF NAIL, 6 OR MORE 01/02/2024 N/A 85824-QKQV SKIN LESIONS, OVER 4 01/02/2024 N/A Encounters Encounter Location Date Provider Diagnosis [facility] [address] [address] 01/02/2024 Normanlottie CastroKeenan Type 2 diabetes mellitus with diabetic peripheral angiopathy without gangrene E11.51 ; Tinea unguium B35.1 ; Pain in right toe(s) M79.674 and Pain in left toe(s) M79.675 Assessments Encounter Date Diagnosis (ICD Code) Assessment Notes Treatment Notes Treatment Clinical Notes Section Notes 01/02/2024 Type 2 diabetes mellitus with diabetic peripheral angiopathy without gangrene (ICD-10 - E11.51) Q7(A), Q8(2B), Q9(1B,2C) 01/02/2024 Tinea unguium (ICD-10 - B35.1) 01/02/2024 Pain in right toe(s) (ICD-10 - M79.674) 01/02/2024 Pain in left toe(s) (ICD-10 - M79.675) Plan Of Treatment Pending Test Test Name Order Date [id number] NAIL, 6 OR MORE 03/18/2011 56778-RPYRADC NAIL, 6 OR MORE 06/22/2011 50639-DKCDZLH NAIL, 6 OR MORE 10/05/2011 98864-BNUBRRJ NAIL, 6 OR MORE 12/28/2011 67097-VVGAVSS NAIL, 6 OR MORE 10/23/2013 04074-PBKFCIX NAIL, 6 OR MORE 10/04/2014 18126-VOMYVDB NAIL, 6 OR MORE 04/01/2015 00741-NYUNGHB NAIL, 6 OR MORE 09/30/2015 02833-VLZKQIE NAIL, 6 OR MORE 04/06/2016 84796-RIGYQTK NAIL, 6 OR MORE 12/28/2016 65834-GVPKANQ NAIL, 6 OR MORE 12/27/2017 52578-HSZXDJY NAIL, 6 OR MORE 06/28/2017 20197-YYPYGAY NAIL, 6 OR MORE 01/02/2024 09684-YLPO SKIN LESIONS, OVER 4 01/02/20 24 54671-AWFP SKIN LESIONS, OVER 4 12/28/19 18 84223-YSCG SKIN LESIONS, OVER 4 06/28/19 19 08262-RBFJ SKIN LESIONS, OVER 4 01/03/20 19 84097-OQIX SKIN LESIONS, OVER 4 07/03/19 20 76117-IUJR SKIN LESIONS, OVER 4 01/15/20 20 72017-CSRZ SKIN LESIONS, OVER 4 12/31/19 21 06888-WCHH SKIN LESIONS, OVER 4 06/29/19 18 15422-DJHY SKIN LESIONS, OVER 4 04/06/19 17 40934-QBPD SKIN LESIONS, OVER 4 12/29/19 17 02741-NIWL SKIN LESIONS, OVER 4 09/30/19 16 72601-TGEG SKIN LESIONS, OVER 4 04/01/19 16 38257-WTTP SKIN LESIONS, OVER 4 10/05/19 15 91875-WJQV SKIN LESIONS, OVER 4 10/24/19 14 32508-RSYA SKIN LESIONS, OVER 4 12/28/19 12 41095-WNNF SKIN LESIONS, OVER 4 10/05/19 12 98382-JRFI SKIN LESIONS, OVER 4 06/22/19 12 22652-PCTJ SKIN LESIONS, OVER 4 03/18/19 12 Next Appt Details Provider Name:Norman Hussein , 01/28/2025 09:45:00 AM, [address] [facility] [place], [address], [place], [address], Insurance Providers Payer Name Payer Address Payer Phone Subscriber Number Group Number Insured Name Patient Relationship to Insured Coverage Start Date Coverage End Date [facility] [address] [place] [address] [id number] Balaji Abrams Self - patient is the insured Medical (General) History Medical History History ICD Code asthma diabetic Surgical History Surgery Date(Month/Year) rotator cuff tear repair 2006 right knee arthroscopy 2000 lumbar laminectomy 2007
--- OUTSIDE RECORDS SUMMARY | 2024-11-30 14:55 | XMS_ITS ---
Author Name [facility] Organization Unknown Care Team Organization Name Specialty Phone Email Start Date End Da te [facility] Srini Mahmood Primary [facility] 08/25/2023 4 [facility] Srini Mahmood [facility] 12/15/2021 4
--- OUTSIDE RECORDS SUMMARY | 2024-11-30 14:55 | XMS_ITS | Patient Health Record ---
Author Organization [facility] [address] Address [address] [place] [address] Care Team Providers Care Assistant Shift Supervisor Name Role Phone MAHMOOD, SEUN Unavailable [phone] DARELLMADHAVI FOREMAN Unavailable [phone] LATONIA LIMAYN Unavailable [phone] Allergies Allergen (clinical drug ingredient) Drug/Non Drug Allergy documented on EMR Reaction Allergy Type Onset Date Status Penicillin Unknown Drug Allergy Active Shellfish (FN) Shellfish-derived Products shortness of breath Drug Allergy Active Results Component Value Reference Range Notes XR LUMBAR SPINE 4+ VIEWS Reviewed date:10/30/2024 03:06:10 PM Interpretation: Performing Lab: Notes/Report: Note See Note [facility], a member of [employer] Patient Name: SAM KU Date of : 1965 Reason for Exam: Acute flare of chronic back pain Exam Date: 10/26/2024 [id number] EST Report Status: Final Ordering Provider: KENYETTA GUERRERO PCP: SEUN MAHMOOD Lumbosacral spine, 4 views. History acute flare [...] discs degenerative changes as detailed. -------- FINAL REPOR T -------- Dictated By: Dora Shi Dictated Date: 10/26/2024 16:28 ET Assigned Physician: Dora Shi Reviewed and Electronically Signed By: Dora Shi Signed Date: 10/26/2024 16:31 ET Workstation ID: [id number] Transcribed By: Self Edit Transcribed Date: 10/26/2024 16:28 ET XR CERVICAL SPINE 2-3 VIEWS Reviewed date:11/08/2024 03:22:19 PM Interpretation: Performing Lab: Notes/Report: Note See Note [facility], a member of [employer] Patient Name: SAM KU Date of : 1965 Reason for Exam: left hand numbness Exam Date: 11/07/2024 [id number] EST Report Status: Final Ordering Provider: FELICIA RESENDEZ PCP: SEUN MAHMOOD Date of Visit:11/07/2024 Reason for visit: Le ft hand paresthesias Views: AP lateral oblique cervical spine Comparison: None Findings: Neuroforaminal narrowing bilaterally, osteophyte formation at C6-C7 vertebral heights maintained, mild diffuse arthritic changes Impression: Osteoarthritis cervical spine URINALYSIS WITH REFLEX MICRO SCOPIC Reviewed date:06/18/2024 04:54:32 PM Interpretation: Performing Lab: Notes/Report: Specific Crescent Urine 1.017 1.003-1.030 pH, Urine 5.5 5.0-8.0 pH Leukocytes, Urine Trace Negative Nitrite, Urine Negative Negative Protein, Urine Negative <=Trace mg/dL Glucose, Urine Negative Negative mg/dL Ketones, Urine Trace Negative mg/dL Urobilinogen, Urine 0.2 0.2-1.0 mg/dL Bilirubin, Urine Negative Negative Blood, Urine Negative Negative RBC, Urine 2.2 0-4 /HPF WBC, Urine 2.4 0-4 /HPF Squamous Epithelial, Urine 63 0-60 /LPF Bacteria, Urine Negative Negative /HPF Hyaline Casts, Urine 0.0 0-3 /LPF PSA TOTAL, FREE AND COMPLEXE D Reviewed date:06/19/2024 07:37:40 AM Interpretation: Performing Lab: Notes/Report: Free PSA is a calculated value. The diagnostic usefulness of % free PSA has not been established in patients with Total PSA below 2.6 or above 10 ng/mL. This test was performed using the Centaur Chemiluminescent method. PSA values obtained with other methods cannot be used interchangeably. PSA 0.97 0.00-4.00 ng/mL PSA, Complexed 0.78 0.00-3.00 ng/mL PSA, Free 0.2 PSA, Free Pct 20.6 >25.0 % HEMOGLOBIN A1C Reviewed date:06/19/2024 07:37:40 AM Interpretation: Performing Lab: Notes/Report: Hemoglobin A1C 7.6 <6.5 % Mean Bld Glu Estim. 171 COMPREHENSIVE METABOLIC PANE L Reviewed date:06/19/2024 07:37:40 AM Interpretation: Performing Lab: Notes/Report: Sodium 141 133-145 mmol/L Potassium 4.0 3.5-5.5 mmol/L Chloride 107 96-110 mmol/L CO2 27 21-32 mmol/L Anion Gap 7 3-11 Glucose 117 70-100 mg/dL BUN 16 5-25 mg/dL Creatinine 0.82 0.70-1.30 mg/dL eGFR 101 >=60 mL/min/1.73m2 Calculation based on the Chronic Kidney Disease Epidemiology Collaboration (CKD-EPI) equation refit without adjustment for race. BUN/Creatinine Ratio 19.5 Calcium 9.0 8.5-10.5 mg/dL AST (SGOT) 27 10-42 unit/L ALT (SGPT) 57 10-60 unit/L Alkaline Phosphatase 101 42-121 unit/L Total Protein 6.7 6.0-8.0 g/dL Albumin 3.6 3.2-5.0 g/dL Total Bilirubin 0.6 0.0-1.4 mg/dL THYROID STIMULATING HORMONE Reviewed date:06/19/2024 07:37:40 AM Interpretation: Performing Lab: Notes/Report: TSH 1.64 0.40-4.00 mcIU/mL VITAMIN D 25 HYDROXY Reviewed date:06/19/2024 07:37:40 AM Interpretation: Performing Lab: Notes/Report: Vit D, 25-Hydroxy 19.8 30.0-80.0 ng/mL LIPID PANEL WITH REFLEX TO D IRECT LDL Reviewed date:06/19/2024 07:37:40 AM Interpretation: Performing Lab: Notes/Report: Cholesterol 121 0-200 mg/dL Triglycerides 69 0-150 mg/dL HDL 47 >=40 mg/dL LDL Calculated 60 0-100 mg/dL VLDL Cholesterol Owen 13.8 Non HDL Chol. (LDL+VLDL) 74 <145 mg/dL Chol/HDL Ratio 2.6 0.0-4.4 CBC WITH AUTO DIFFERENTIAL Reviewed date:06/18/2024 04:54:36 PM Interpretation: Performing Lab: Notes/Report: WBC 10.4 4.8-10.8 K/mcL RBC 4.80 4.50-5.50 M/mcL Hemoglobin 14.0 13.5-17.5 g/dL Hematocrit 42.4 42.0-54.0 % MCV 88.1 79.0-98.0 FL MCH 29.1 27.0-32.0 pcg MCHC 33.0 32.0-37.0 g/dL RDW 13.9 11.0-15.0 % Platelets 219 130-400 K/mcL MPV 10.3 7.0-11.0 FL NRBC 0.0 <1.0 % NRBC Absolute 0.00 <0.10 K/mcL Neutrophils Relative 61.3 Lymphocytes Relative 28.5 Monocytes Relative 7.6 Eosinophils Relative 2.0 Basophils Relative 0.3 Immature Granulocytes Relative 0.3 Neutrophils Absolute 6.39 1.50-7.00 K/mcL Lymphocytes Absolute 2.97 1.00-5.00 K/mcL Monocytes Absolute 0.79 0.20-1.00 K/mcL Eosinophils Absolute 0.21 0.00-0.50 K/mcL Basophils Absolute 0.03 0.00-0.20 K/mcL Immature Granulocytes Absolute 0.03 0.00-0.03 K/mcL Reason For Referral Reason [place] Allergy Diagnosis 1 Seasonal allergic re action (J30.2) Referral Organization [facility] [address] Referring Provider First Name SEUN Referring Provider Last Name MAHMOOD Referring Provider Speciality Internal M edicine Referred Provider Keiht Beaulieu Referred Provider Specialty Allergy/Immu nology General Notes Shania Duff 07/2024 08:24:48 AM > Pt given info phone referral faxed to Clinical Notes Lashawn Perez 11/2024 03:23:28 PM > The office is still working on the June referrals, Lashawn Perez 08/29/2024 03:44:20 PM > refaxed to [phone], Darcy Baker 09/26/2024 03:11:45 PM > Spoke to [facility]. Patient already has an appointment on 01/16/2025 9AM. Referral Priority Routine Reason Diagnosis 1 Left hand paresthesi a (R20.2) Referral Organization [facility] [address] Referring Provider First Name MADHAVI Referring Provider Last Name IVETTE Referring Provider Speciality Internal M edicine Referred Provider Specialty Orthopedic S urgery General Notes DuffDericie 09/2024 11:18:31 AM > Pt given phone [phone] referral faxed to [phone] Referral Priority Routine Medications Medication SIG (Take, Route, Frequency, Duration) [...] Twice a day; Duration: 30 days Active Albuterol Sulfate HFA 108 (90 Base) [...] Duration: 83 Active Ibuprofen 800mg q8h Active tiZANidine HCl 4 MG 1/2-1 tablet as need ed for spasm Orally Three times a day; Duration: 10 days 10/15/2024 Active HumaLOG 100 UNIT/ML Injection; Duration: 28 Active Immunizations Vaccine Route Administration Date Status Comme nts influenza IM Intramuscular 11/25/2021 Administered Influenza, seasonal, injectable, 6-35 months Unknown 11/25/2021 Administered Moderna Covid-19 Vaccine Unknown 01/22/2021 Administere d Social History Tobacco Use: Social History Observation Description Date Details (start date - stop date) Never Smoker NA - NA Tobacco Use/Smoking Question Answer Notes Are you a nonsmoker Problems Problem Type SNOMED Code ICD Code Onset Dates Problem Status W/U Status Risk Notes Problem Type II diabetes mellitus without complication (365882002) Type 2 diabetes mellitus without complications (E11.9) Active confirmed Problem Chronic pain (28152879) Other chronic pain (G89.29) Active confirmed Problem Essential hypertension (73745011) Essential (primary) hypertension (I10) Active confirmed Problem Simple chronic bronchitis (28364693) Simple chronic bronchitis (J41.0) Active confirmed Problem Sciatica (84040388) Lumbago with sciatica, right side (M54.41) Active confirmed Problem Sciatica (20838680) Lumbago with sciatica, left side (M54.42) Active confirmed Problem Long-term current us e of insulin (250995696) terminal clerk (current) use of insulin (Z79.4) Active confirmed Problem Morbid obesity (638362005) Morbid obesity (E66.01) Active confirmed Problem Pure hypercholesterolemia (851772639) Pure hypercholesterolemia (E78.00) Active confirmed Problem Hyperlipidaemia (52521999) Hyperlipidemia, unspecified hyperlipidemia type (E78.5) Active confirmed Problem Hypothyroidism (68829722) Hypothyroidism, unspecified type (E03.9) Active confirmed Problem Vitamin D deficiency (19260522) Vitamin D deficiency (E55.9) Active confirmed Problem Obstructive sleep apnea syndrome (84646961) PIYUSH (obstructive sleep apnea) (G47.33) Active confirmed Problem Seasonal allergic rhinitis (979906340) Seasonal allergic rhinitis, unspecified trigger (J30.2) Active confirmed Problem Radiculopathy (35096913) Back pain with radiculopathy (M54.10) Active confirmed Problem Acute cough (226302895884338635) Acute cough (R05.1) Active confirmed Problem Sciatica (66338682) Acute right- sided low back pain with right-sided sciatica (M54.41) Active confirmed Problem Sciatica (43346063) Acute left-s ided low back pain with left-sided sciatica (M54.42) Active confirmed Problem Skin sensation disturbance (20930744) Left hand paresthesia (R20.2) Active confirmed Problem Sciatica (43027422) Sciatica of left side (M54.32) Active confirmed Problem Influenza A virus (850418399) Influenza A (J10.1) Active confirmed Problem Seasonal allergic rhinitis (417210113) Seasonal allergic reaction (J30.2) Active confirmed Problem Expiratory wheezing (3396226) Expiratory wheezing (R06.2) Active confirmed Problem Visual Disturbance (87588468) Blurry vision, bilateral (H53.8) Active confirmed Vital Signs Heart Rate 74 /min 11/27/2024 Temperature 100 degrees Fahrenheit 04/03/2024 Oximetry 96 % 11/27/2024 Blood pressure diastolic 82 mm Hg 11/27/2024 Height 71 in 11/27/2024 Blood pressure systolic 128 mm Hg 11/27/2024 Weight 356.1 lbs 11/27/2024 BMI 49.66 kg/m2 11/27/2024 Encounters Encounter Location Date Provider Diagnosis [facility] [address] [facility] [address] [place] [address] 04/03/2024 GIOVANNA JANIE Influenza A J10.1 ; Acute cough R05.1 and Blurry vision, bilateral H53.8 [facility] [address] [place] [address] [place] [address] 04/10/2024 GIOVANNA LIMA Acute cough R05.1 an d Expiratory wheezing R06.[address] [facility] [address] [place] [address] 06/16/2024 MADHAVI STEELE Essential (primary) hypertension I10 ; Type 2 diabetes mellitus without complications E11.9 ; Morbid obesity E66.01 ; PIYUSH (obstructive sleep apnea) G47.33 and Vitamin D deficiency E55.9 [facility] [address] [facility] [address] [place] [address] 06/28/2024 MADHAVI STEELE Type 2 diabetes guanako itus without complications E11.9 ; Annual physical exam Z00.00 ; terminal clerk (current) use of insulin Z79.4 ; Essential (primary) hypertension I10 ; Pure hypercholesterolemia E78.00 ; Morbid obesity E66.01 ; PIYUSH (obstructive sleep apnea) G47.33 ; Lumbago with sciatica, left side M54.42 ; Lumbago with sciatica, right side M54.41 ; Encounter for examination of blood pressure without abnormal findings Z01.30 and Seasonal allergic rhinitis, unspecified trigger J30.2 [facility] [address] [address] 10/01/2024 MADHAVI IVETTE Type 2 diabetes guanako itus without complications E11.9 ; 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 Z02.4 ; MCFP (current) use of insulin Z79.4 ; Essential (primary) hypertension I10 ; Pure hypercholesterolemia E78.00 ; Morbid obesity E66.01 ; PIYUSH (obstructive sleep apnea) G47.33 ; Lumbago with sciatica, left side M54.42 ; Lumbago with sciatica, right side M54.41 ; Encounter for examination of blood pressure without abnormal findings Z01.30 and Seasonal allergic rhinitis, unspecified trigger J30.2 [facility] [address] 10/15/2024 MADHAVI STEELE Left hand paresthesi a R20.2 and Acute left-sided low back pain with left-sided sciatica M54.42 [facility] [address] [address] 11/27/2024 MADHAVI STEELE Type 2 diabetes guanako itus without complications E11.9 ; MCFP (current) use of insulin Z79.4 ; Essential (primary) hypertension I10 ; Pure hypercholesterolemia E78.00 ; Morbid obesity E66.01 ; PIYUSH (obstructive sleep apnea) G47.33 ; Lumbago with sciatica, left side M54.42 ; Lumbago with sciatica, right side M54.41 ; Encounter for examination of blood pressure without abnormal findings Z01.30 and Seasonal allergic rhinitis, unspecified trigger J30.2 [facility] [address] [address] 03/06/2024 MADHAVI STEELE [facility] [address] [place] [address] 04/03/2024 MADHAVI STEELE [facility] [address] [address] 04/03/2024 [facility] [address] [address] 04/09/2024 [facility] [address] [facility] [address] [place] [address] 05/17/2024 TALJENNIFER MAHMOOD [facility] [address] [facility] [address] [place] [address] 07/11/2024 TALAL MAHMOOD [facility] [address] [address] 07/13/2024 TALAL MAHMOOD [facility] [address] [address] 10/15/2024 MADHAVI DARELLHOT [facility] [address] [place] [address] 10/22/2024 MADHAVI BORHOT [facility] [address] [address] 10/29/2024 MADHAVI BORHOT [facility] [address] [place] [address] 10/29/2024 MADHAVI BORHOT [facility] [address] [address] 10/31/2024 TALJENNIFER DURHAMAN [facility] [address] [address] 11/20/2024 MADHAVI DARELLHOT Assessments Encounter Date Diagnosis (ICD Code) Assessment Notes Treatment Notes Treatment Clinical Notes Section Notes 04/03/2024 Acute cough (ICD-10 - R05.1) Sam is a 58-year-old male with PMH of insulin-dependent T2DM, HTN, HLD, asthma that presents for evaluation of flulike including nonproductive cough, runny nose, nasal congestion, sore throat, decreased appetite, diarrhea, and fever/chills x 1 day. On presentation patient appears fatigued. Temporal temperature 100F, BP 156/90, patient otherwise vitally stable. The patient coughs frequently throughout the encounter. Physical exam reveals mild erythema of bilateral TMs -no visible purulence/bulging . There is also tonsillar lymphadenopathy bilaterally. Lungs CTA. Exam otherwise WNL. Given acute onset of symptoms likely viral in etiology. Swab for COVID/flu/RSV positive for influenza A. Plan to treat with Tamiflu 75 mg twice daily x 5 days. Given symptom of cough will also treat with benzonatate 200 mg up to 3 times daily as needed. The patient is encouraged to continue his current asthma regimen of Wixela twice daily and albuterol as needed. Discussed the importance of continued symptomatic treatment with rest, fluids, use of Tylenol/ibuprofen , throat lozenges, and use of OTC decongestions as needed. He understands the importance of adequate hydration and eating bland foods such as toast, bananas, broth as tolerated. #Blurry vision: Patient reports associated symptom of blurry vision. On exam, he squints the right eye frequently. Pupils are equal round and reactive to light bilaterally. There is horizontal nystagmus noted with extraocular movements. No focal neurologic deficits. Given patient's comorbidities discussed very low threshold to go to the emergency department including development of significant headache, eye pain, inability to see, confusion, syncope, difficulty talking, or localized weakness. Patient demonstrates understanding. 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 All questions answered to the patient's satisfaction. Patient demonstrates understanding of diagnosis and treatments discussed. Follow-up at next scheduled appointment, sooner should any questions/concern s arise. Case discussed with collaborating physician Gypsy Mahmood who has reviewed the assessment/plan. Chart, medications, labs, and vital signs reviewed. Dictation completed with the use of [employer] voice recognition software, prone to medical misidentification s and grammatical errors. All errors are unintentional. Although the practitioner does try to identify and correct errors, some may be present. Please do not hesitate to contact the practitioner for clarification. 04/03/2024 Influenza A (ICD-10 - J10.1) Sam is a 58-year-old male with PMH of insulin-dependent T2DM, HTN, HLD, asthma that presents for evaluation of flulike including nonproductive cough, runny nose, nasal congestion, sore throat, decreased appetite, diarrhea, and fever/chills x 1 day. On presentation patient appears fatigued. Temporal temperature 100F, BP 156/90, patient otherwise vitally stable. The patient coughs frequently throughout the encounter. Physical exam reveals mild erythema of bilateral TMs -no visible purulence/bulging . There is also tonsillar lymphadenopathy bilaterally. Lungs CTA. Exam otherwise WNL. Given acute onset of symptoms likely viral in etiology. Swab for COVID/flu/RSV positive for influenza A. Plan to treat with Tamiflu 75 mg twice daily x 5 days. Given symptom of cough will also treat with benzonatate 200 mg up to 3 times daily as needed. The patient is encouraged to continue his current asthma regimen of Wixela twice daily and albuterol as needed. Discussed the importance of continued symptomatic treatment with rest, fluids, use of Tylenol/ibuprofen , throat lozenges, and use of OTC decongestions as needed. He understands the importance of adequate hydration and eating bland foods such as toast, bananas, broth as tolerated. #Blurry vision: Patient reports associated symptom of blurry vision. On exam, he squints the right eye frequently. Pupils are equal round and reactive to light bilaterally. There is horizontal nystagmus noted with extraocular movements. No focal neurologic deficits. Given patient's comorbidities discussed very low threshold to go to the emergency department including development of significant headache, eye pain, inability to see, confusion, syncope, difficulty talking, or localized weakness. Patient demonstrates understanding. 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 All questions answered to the patient's satisfaction. Patient demonstrates understanding of diagnosis and treatments discussed. Follow-up at next scheduled appointment, sooner should any questions/concern s arise. Case discussed with collaborating physician Gypsy Mahmood who has reviewed the assessment/plan. Chart, medications, labs, and vital signs reviewed. Dictation completed with the use of [employer] voice recognition software, prone to medical misidentification s and grammatical errors. All errors are unintentional. Although the practitioner does try to identify and correct errors, some may be present. Please do not hesitate to contact the practitioner for clarification. 04/10/2024 Acute cough (ICD-10 - R05.1) Sam is a 58-year-old male with a PMH of insulin-dependent T2DM, HTN, HLD, asthma that presents for evaluation of continued sick symptoms. Patient seen in office 04/03/2024 at which time he tested positive for flu A. Patient completed Tamiflu x 5 days and took Tessalon Perles as needed for cough. Patient reports symptoms have improved however he continues to experience symptoms of fatigue, congestion, and dry cough. Having subjective fever/chills at night.Patient vitally stable on presentation. O2 sat 97%. Physical exam reveals expiratory wheezing in bilateral upper lung fontenot. There are also coarse lung sounds cleared with coughing. Patient coughs throughout exam. Given duration of symptoms and physical exam findings plan to treat with prednisone burst -40 mg daily x 5 days. Will also treat with azithromycin Dosepak. Reviewed proper use and side effects of each medication. Patient is encouraged to continue symptomatic management with rest, fluids, steam, lozenges, and OTC anti-inflammatori es as needed. All questions answered to the patient's satisfaction. Patient demonstrates understanding of diagnosis and treatments discussed. Follow-up at next scheduled appointment, sooner should symptoms not improve or should any questions/concern s arise. Case discussed with collaborating physician Gypsy Mahmood who has reviewed the assessment/plan. Chart, medications, labs, and vital signs reviewed. Dictation completed with the use of [employer] voice recognition software, prone to medical misidentification s and grammatical errors. All errors are unintentional. Although the practitioner does try to identify and correct errors, some may be present. Please do not hesitate to contact the practitioner for clarification. 04/10/2024 Expiratory wheezing (ICD-10 - R06.2) Sam is a 58-year-old male with a PMH of insulin-dependent T2DM, HTN, HLD, asthma that presents for evaluation of continued sick symptoms. Patient seen in office 04/03/2024 at which time he tested positive for flu A. Patient completed Tamiflu x 5 days and took Tessalon Perles as needed for cough. Patient reports symptoms have improved however he continues to experience symptoms of fatigue, congestion, and dry cough. Having subjective fever/chills at night.Patient vitally stable on presentation. O2 sat 97%. Physical exam reveals expiratory wheezing in bilateral upper lung fontenot. There are also coarse lung sounds cleared with coughing. Patient coughs throughout exam. Given duration of symptoms and physical exam findings plan to treat with prednisone burst -40 mg daily x 5 days. Will also treat with azithromycin Dosepak. Reviewed proper use and side effects of each medication. Patient is encouraged to continue symptomatic management with rest, fluids, steam, lozenges, and OTC anti-inflammatori es as needed. All questions answered to the patient's satisfaction. Patient demonstrates understanding of diagnosis and treatments discussed. Follow-up at next scheduled appointment, sooner should symptoms not improve or should any questions/concern s arise. Case discussed with collaborating physician Gypsy Mahmood who has reviewed the assessment/plan. Chart, medications, labs, and vital signs reviewed. Dictation completed with the use of [employer] voice recognition software, prone to medical misidentification s and grammatical errors. All errors are unintentional. Although the practitioner does try to identify and correct errors, some may be present. Please do not hesitate to contact the practitioner for clarification. 06/16/2024 Essential (primary) hypertension (ICD-10 - I10) FMLA paperwork was completed today Time spent 30 minutes Coordination of care, chart review, paperwork filled out and filed in EMR 06/28/2024 Type 2 diabetes mellitus without complications (ICD-10 - E11.9) Acute Concerns/Problem List: 06/28/2024 labs reviewed Patient Interested in Coronary Calcium CT, will RX to [facility] Refilled Wixela, Fluticasone Propionate Suspension. _update Cologuard Of note, some information is being carried forward from prior records for informational purposes only and is being cited so that efficiency, safety and quality of the patient's care is not compromised This note was prepared using voice recognition software and direct typing Please excuse inadvertent mail examiner or typing errors, or uncorrected word substitutions Although every attempt has been made by the provider to proofread this document, occasional misspellings and typographical errors may still be present Due to the previous pandemic, and the use of personal protective equipment (PPE) This may decrease voice recognition accuracy Inadvertent mail examiner errors may occur 06/28/2024 Annual physical exam (ICD-10 - Z00.00) Acute Concerns/Problem List: 06/28/2024 labs reviewed Patient Interested in Coronary Calcium CT, will RX to [facility] Refilled Wixela, Fluticasone Propionate Suspension. _update Cologuard Of note, some information is being carried forward from prior records for informational purposes only and is being cited so that efficiency, safety and quality of the patient's care is not compromised This note was prepared using voice recognition software and direct typing Please excuse inadvertent mail examiner or typing errors, or uncorrected word substitutions Although every attempt has been made by the provider to proofread this document, occasional misspellings and typographical errors may still be present Due to the previous pandemic, and the use of personal protective equipment (PPE) This may decrease voice recognition accuracy Inadvertent mail examiner errors may occur 10/01/2024 Type 2 diabetes mellitus without complications (ICD-10 - E11.9) Acute Concerns/Problem List: 06/28/2024 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 _update Cologuard Of note, some information is being carried forward from prior records for informational purposes only and is being cited so that efficiency, safety and quality of the patient's care is not compromised This note was prepared using voice recognition software and direct typing Please excuse inadvertent mail examiner or typing errors, or uncorrected word substitutions Although every attempt has been made by the provider to proofread this document, occasional misspellings and typographical errors may still be present Due to the previous pandemic, and the use of personal protective equipment (PPE) This may decrease voice recognition accuracy Inadvertent mail examiner errors may occur 10/01/2024 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 _update Cologuard Of note, some information is being carried forward from prior records for informational purposes only and is being cited so that efficiency, safety and quality of the patient's care is not compromised This note was prepared using voice recognition software and direct typing Please excuse inadvertent mail examiner or typing errors, or uncorrected word substitutions Although every attempt has been made by the provider to proofread this document, occasional misspellings and typographical errors may still be present Due to the previous pandemic, and the use of personal protective equipment (PPE) This may decrease voice recognition accuracy Inadvertent mail examiner errors may occur 10/15/2024 Acute left-sided low back pain with left-sided sciatica (ICD-10 - M54.42) Prednisone taper Tizanidine Hand surgery referral likely CTS Encouraged to call [facility] moving forward for any chronic back pain issues Standard medication instructions given surrounding the use of muscle relaxants and steroids Of note, some information is being carried forward from prior records for informational purposes only and is being cited so that efficiency, safety and quality of the patient's care is not compromised This note was prepared using voice recognition software and direct typing Please excuse inadvertent mail examiner or typing errors, or uncorrected word substitutions Although every attempt has been made by the provider to proofread this document, occasional misspellings and typographical errors may still be present Due to the previous pandemic, and the use of personal protective equipment (PPE) This may decrease voice recognition accuracy Inadvertent mail examiner errors may occur 10/15/2024 Left hand paresthesi a (ICD-10 - R20.2) Prednisone taper Tizanidine Hand surgery referral likely CTS Encouraged to call [facility]SP moving forward for any chronic back pain issues Standard medication instructions given surrounding the use of muscle relaxants and steroids Of note, some information is being carried forward from prior records for informational purposes only and is being cited so that efficiency, safety and quality of the patient's care is not compromised This note was prepared using voice recognition software and direct typing Please excuse inadvertent mail examiner or typing errors, or uncorrected word substitutions Although every attempt has been made by the provider to proofread this document, occasional misspellings and typographical errors may still be present Due to the previous pandemic, and the use of personal protective equipment (PPE) This may decrease voice recognition accuracy Inadvertent mail examiner errors may occur 11/27/2024 Type 2 diabetes mellitus without complications (ICD-10 - E11.9) Acute Concerns/Problem List: 11/27/2024 Patient has been seen for multiple visits in the past for FMLA paperwork We will give him continuous leave October 30, 2024 until December 24, 2024 and likely should be able to return December 25, 2024 to work Scheduled for spinal injections in the upcoming weeks with [facility] 1 year DOT card labs reviewed Patient Interested in Coronary Calcium CT, will RX to [facility] Refilled Wixela, Fluticasone Propionate Suspension. _update Cologuard Of note, some information is being carried forward from prior records for informational purposes only and is being cited so that efficiency, safety and quality of the patient's care is not compromised This note was prepared using voice recognition software and direct typing Please excuse inadvertent mail examiner or typing errors, or uncorrected word substitutions Although every attempt has been made by the provider to proofread this document, occasional misspellings and typographical errors may still be present Due to the previous pandemic, and the use of personal protective equipment (PPE) This may decrease voice recognition accuracy Inadvertent mail examiner errors may occur 10/01/2024 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 _update Cologuard Of note, some information is being carried forward from prior records for informational purposes only and is being cited so that efficiency, safety and quality of the patient's care is not compromised This note was prepared using voice recognition software and direct typing Please excuse inadvertent mail examiner or typing errors, or uncorrected word substitutions Although every attempt has been made by the provider to proofread this document, occasional misspellings and typographical errors may still be present Due to the previous pandemic, and the use of personal protective equipment (PPE) This may decrease voice recognition accuracy Inadvertent mail examiner errors may occur 11/27/2024 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 _update Cologuard Of note, some information is being carried forward from prior records for informational purposes only and is being cited so that efficiency, safety and quality of the patient's care is not compromised This note was prepared using voice recognition software and direct typing Please excuse inadvertent mail examiner or typing errors, or uncorrected word substitutions Although every attempt has been made by the provider to proofread this document, occasional misspellings and typographical errors may still be present Due to the previous pandemic, and the use of personal protective equipment (PPE) This may decrease voice recognition accuracy Inadvertent mail examiner errors may occur 06/28/2024 [facility] (current) use of insulin (ICD-10 - Z79.4) Acute Concerns/Problem List: 06/28/2024 labs reviewed Patient Interested in Coronary Calcium CT, will RX to [facility] Refilled Wixela, Fluticasone Propionate Suspension. _update Cologuard Of note, some information is being carried forward from prior records for informational purposes only and is being cited so that efficiency, safety and quality of the patient's care is not compromised This note was prepared using voice recognition software and direct typing Please excuse inadvertent mail examiner or typing errors, or uncorrected word substitutions Although every attempt has been made by the provider to proofread this document, occasional misspellings and typographical errors may still be present Due to the previous pandemic, and the use of personal protective equipment (PPE) This may decrease voice recognition accuracy Inadvertent mail examiner errors may occur 06/16/2024 Type 2 diabetes mellitus without complications (ICD-10 - E11.9) FMLA paperwork was completed today Time spent 30 minutes Coordination of care, chart review, paperwork filled out and filed in EMR 04/03/2024 Blurry vision, bilateral (ICD-10 - H53.8) Sam is a 58-year-old male with PMH of insulin-dependent T2DM, HTN, HLD, asthma that presents for evaluation of flulike including nonproductive cough, runny nose, nasal congestion, sore throat, decreased appetite, diarrhea, and fever/chills x 1 day. On presentation patient appears fatigued. Temporal temperature 100F, BP 156/90, patient otherwise vitally stable. The patient coughs frequently throughout the encounter. Physical exam reveals mild erythema of bilateral TMs -no visible purulence/bulging . There is also tonsillar lymphadenopathy bilaterally. Lungs CTA. Exam otherwise WNL. Given acute onset of symptoms likely viral in etiology. Swab for COVID/flu/RSV positive for influenza A. Plan to treat with Tamiflu 75 mg twice daily x 5 days. Given symptom of cough will also treat with benzonatate 200 mg up to 3 times daily as needed. The patient is encouraged to continue his current asthma regimen of Wixela twice daily and albuterol as needed. Discussed the importance of continued symptomatic treatment with rest, fluids, use of Tylenol/ibuprofen , throat lozenges, and use of OTC decongestions as needed. He understands the importance of adequate hydration and eating bland foods such as toast, bananas, broth as tolerated. #Blurry vision: Patient reports associated symptom of blurry vision. On exam, he squints the right eye frequently. Pupils are equal round and reactive to light bilaterally. There is horizontal nystagmus noted with extraocular movements. No focal neurologic deficits. Given patient's comorbidities discussed very low threshold to go to the emergency department including development of significant headache, eye pain, inability to see, confusion, syncope, difficulty talking, or localized weakness. Patient demonstrates understanding. 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 All questions answered to the patient's satisfaction. Patient demonstrates understanding of diagnosis and treatments discussed. Follow-up at next scheduled appointment, sooner should any questions/concern s arise. Case discussed with collaborating physician Gypsy Mahmood who has reviewed the assessment/plan. Chart, medications, labs, and vital signs reviewed. Dictation completed with the use of [employer] voice recognition software, prone to medical misidentification s and grammatical errors. All errors are unintentional. Although the practitioner does try to identify and correct errors, some may be present. Please do not hesitate to contact the practitioner for clarification. 06/16/2024 Morbid obesity (ICD- 10 - E66.01) [place] paperwork was completed today Time spent 30 minutes Coordination of care, chart review, paperwork filled out and filed in EMR 06/28/2024 Essential (primary) hypertension (ICD-10 - I10) Acute Concerns/Problem List: 06/28/2024 labs reviewed Patient Interested in Coronary Calcium CT, will RX to [facility] Refilled Wixela, Fluticasone Propionate Suspension. _update Cologuard Of note, some information is being carried forward from prior records for informational purposes only and is being cited so that efficiency, safety and quality of the patient's care is not compromised This note was prepared using voice recognition software and direct typing Please excuse inadvertent mail examiner or typing errors, or uncorrected word substitutions Although every attempt has been made by the provider to proofread this document, occasional misspellings and typographical errors may still be present Due to the previous pandemic, and the use of personal protective equipment (PPE) This may decrease voice recognition accuracy Inadvertent mail examiner errors may occur 10/01/2024 Essential (primary) hypertension (ICD-10 - I10) Acute Concerns/Problem List: 06/28/2024 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 _update Cologuard Of note, some information is being carried forward from prior records for informational purposes only and is being cited so that efficiency, safety and quality of the patient's care is not compromised This note was prepared using voice recognition software and direct typing Please excuse inadvertent mail examiner or typing errors, or uncorrected word substitutions Although every attempt has been made by the provider to proofread this document, occasional misspellings and typographical errors may still be present Due to the previous pandemic, and the use of personal protective equipment (PPE) This may decrease voice recognition accuracy Inadvertent mail examiner errors may occur 11/27/2024 Essential (primary) hypertension (ICD-10 - I10) Acute Concerns/Problem List: 11/27/2024 Patient has been [...] in Coronary Calcium CT, will RX to [facility] Refilled Wixela, Fluticasone Propionate Suspension. _update Cologuard Of note, some information is being carried forward from prior records for informational purposes only and is being cited so that efficiency, safety and quality of the patient's care is not compromised This note was prepared using voice recognition software and direct typing Please excuse inadvertent mail examiner or typing errors, or uncorrected word substitutions Although every attempt has been made by the provider to proofread this document, occasional misspellings and typographical errors may still be present Due to the previous pandemic, and the use of personal protective equipment (PPE) This may decrease voice recognition accuracy Inadvertent mail examiner errors may occur 11/27/2024 Pure hypercholesterolemia (ICD-10 - E78.00) Acute Concerns/Problem List: 11/27/2024 Patient has been [...] in Coronary Calcium CT, will RX to [facility] Refilled Wixela, Fluticasone Propionate Suspension. _update Cologuard Of note, some information is being carried forward from prior records for informational purposes only and is being cited so that efficiency, safety and quality of the patient's care is not compromised This note was prepared using voice recognition software and direct typing Please excuse inadvertent mail examiner or typing errors, or uncorrected word substitutions Although every attempt has been made by the provider to proofread this document, occasional misspellings and typographical errors may still be present Due to the previous pandemic, and the use of personal protective equipment (PPE) This may decrease voice recognition accuracy Inadvertent mail examiner errors may occur 10/01/2024 Pure hypercholesterolemia (ICD-10 - E78.00) Acute Concerns/Problem List: 06/28/2024 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 _update Cologuard Of note, some information is being carried forward from prior records for informational purposes only and is being cited so that efficiency, safety and quality of the patient's care is not compromised This note was prepared using voice recognition software and direct typing Please excuse inadvertent mail examiner or typing errors, or uncorrected word substitutions Although every attempt has been made by the provider to proofread this document, occasional misspellings and typographical errors may still be present Due to the previous pandemic, and the use of personal protective equipment (PPE) This may decrease voice recognition accuracy Inadvertent mail examiner errors may occur 06/16/2024 PIYUSH (obstructive sle ep apnea) (ICD-10 - G47.33) FMLA paperwork was completed today Time spent 30 minutes Coordination of care, chart review, paperwork filled out and filed in EMR 06/28/2024 Pure hypercholesterolemia (ICD-10 - E78.00) Acute Concerns/Problem List: 06/28/2024 labs reviewed Patient Interested in Coronary Calcium CT, will RX to [facility] Refilled Wixela, Fluticasone Propionate Suspension. _update Cologuard Of note, some information is being carried forward from prior records for informational purposes only and is being cited so that efficiency, safety and quality of the patient's care is not compromised This note was prepared using voice recognition software and direct typing Please excuse inadvertent mail examiner or typing errors, or uncorrected word substitutions Although every attempt has been made by the provider to proofread this document, occasional misspellings and typographical errors may still be present Due to the previous pandemic, and the use of personal protective equipment (PPE) This may decrease voice recognition accuracy Inadvertent mail examiner errors may occur 06/28/2024 Morbid obesity (ICD- 10 - E66.01) Acute Concerns/Problem List: 06/28/2024 labs reviewed Patient Interested in Coronary Calcium CT, will RX to [facility] Refilled Wixela, Fluticasone Propionate Suspension. _update Cologuard Of note, some information is being carried forward from prior records for informational purposes only and is being cited so that efficiency, safety and quality of the patient's care is not compromised This note was prepared using voice recognition software and direct typing Please excuse inadvertent mail examiner or typing errors, or uncorrected word substitutions Although every attempt has been made by the provider to proofread this document, occasional misspellings and typographical errors may still be present Due to the previous pandemic, and the use of personal protective equipment (PPE) This may decrease voice recognition accuracy Inadvertent mail examiner errors may occur 06/16/2024 Vitamin D deficiency (ICD-10 - E55.9) FMLA paperwork was completed today Time spent 30 minutes Coordination of care, chart review, paperwork filled out and filed in EMR 11/27/2024 Morbid obesity (ICD- 10 - E66.01) Acute Concerns/Problem List: 11/27/2024 Patient has been [...] in Coronary Calcium CT, will RX to [facility] Refilled Wixela, Fluticasone Propionate Suspension. _update Cologuard Of note, some information is being carried forward from prior records for informational purposes only and is being cited so that efficiency, safety and quality of the patient's care is not compromised This note was prepared using voice recognition software and direct typing Please excuse inadvertent mail examiner or typing errors, or uncorrected word substitutions Although every attempt has been made by the provider to proofread this document, occasional misspellings and typographical errors may still be present Due to the previous pandemic, and the use of personal protective equipment (PPE) This may decrease voice recognition accuracy Inadvertent mail examiner errors may occur 10/01/2024 Morbid obesity (ICD- 10 - E66.01) Acute Concerns/Problem List: 06/28/2024 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 _update Cologuard Of note, some information is being carried forward from prior records for informational purposes only and is being cited so that efficiency, safety and quality of the patient's care is not compromised This note was prepared using voice recognition software and direct typing Please excuse inadvertent mail examiner or typing errors, or uncorrected word substitutions Although every attempt has been made by the provider to proofread this document, occasional misspellings and typographical errors may still be present Due to the previous pandemic, and the use of personal protective equipment (PPE) This may decrease voice recognition accuracy Inadvertent mail examiner errors may occur 11/27/2024 PIYUSH (obstructive sle ep apnea) (ICD-10 - G47.33) Acute Concerns/Problem List: 11/27/2024 Patient has been [...] in Coronary Calcium CT, will RX to [facility] Refilled Wixela, Fluticasone Propionate Suspension. _update Cologuard Of note, some information is being carried forward from prior records for informational purposes only and is being cited so that efficiency, safety and quality of the patient's care is not compromised This note was prepared using voice recognition software and direct typing Please excuse inadvertent mail examiner or typing errors, or uncorrected word substitutions Although every attempt has been made by the provider to proofread this document, occasional misspellings and typographical errors may still be present Due to the previous pandemic, and the use of personal protective equipment (PPE) This may decrease voice recognition accuracy Inadvertent mail examiner errors may occur 10/01/2024 PIYUSH (obstructive sle ep apnea) (ICD-10 - G47.33) Acute Concerns/Problem List: 06/28/2024 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 _update Cologuard Of note, some information is being carried forward from prior records for informational purposes only and is being cited so that efficiency, safety and quality of the patient's care is not compromised This note was prepared using voice recognition software and direct typing Please excuse inadvertent mail examiner or typing errors, or uncorrected word substitutions Although every attempt has been made by the provider to proofread this document, occasional misspellings and typographical errors may still be present Due to the previous pandemic, and the use of personal protective equipment (PPE) This may decrease voice recognition accuracy Inadvertent mail examiner errors may occur 06/28/2024 PIYUSH (obstructive sle ep apnea) (ICD-10 - G47.33) Acute Concerns/Problem List: 06/28/2024 labs reviewed Patient Interested in Coronary Calcium CT, will RX to [facility] Refilled Wixela, Fluticasone Propionate Suspension. _update Cologuard Of note, some information is being carried forward from prior records for informational purposes only and is being cited so that efficiency, safety and quality of the patient's care is not compromised This note was prepared using voice recognition software and direct typing Please excuse inadvertent mail examiner or typing errors, or uncorrected word substitutions Although every attempt has been made by the provider to proofread this document, occasional misspellings and typographical errors may still be present Due to the previous pandemic, and the use of personal protective equipment (PPE) This may decrease voice recognition accuracy Inadvertent mail examiner errors may occur 06/28/2024 Lumbago with sciatic a, left side (ICD-10 - M54.42) Acute Concerns/Problem List: 06/28/2024 labs reviewed Patient Interested in Coronary Calcium CT, will RX to [facility] Refilled Wixela, Fluticasone Propionate Suspension. _update Cologuard Of note, some information is being carried forward from prior records for informational purposes only and is being cited so that efficiency, safety and quality of the patient's care is not compromised This note was prepared using voice recognition software and direct typing Please excuse inadvertent mail examiner or typing errors, or uncorrected word substitutions Although every attempt has been made by the provider to proofread this document, occasional misspellings and typographical errors may still be present Due to the previous pandemic, and the use of personal protective equipment (PPE) This may decrease voice recognition accuracy Inadvertent mail examiner errors may occur 11/27/2024 Lumbago with sciatic a, left side (ICD-10 - M54.42) Acute Concerns/Problem List: 11/27/2024 Patient has been [...] in Coronary [place]cium CT, will RX to [facility] [place] Refilled Wixela, Fluticasone Propionate Suspension. _update Cologuard Of note, some information is being carried forward from prior records for informational purposes only and is being cited so that efficiency, safety and quality of the patient's care is not compromised This note was prepared using voice recognition software and direct typing Please excuse inadvertent mail examiner or typing errors, or uncorrected word substitutions Although every attempt has been made by the provider to proofread this document, occasional misspellings and typographical errors may still be present Due to the previous pandemic, and the use of personal protective equipment (PPE) This may decrease voice recognition accuracy Inadvertent mail examiner errors may occur 10/01/2024 Lumbago with sciatic a, left side (ICD-10 - M54.42) Acute Concerns/Problem List: 06/28/2024 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 _update Cologuard Of note, some information is being carried forward from prior records for informational purposes only and is being cited so that efficiency, safety and quality of the patient's care is not compromised This note was prepared using voice recognition software and direct typing Please excuse inadvertent mail examiner or typing errors, or uncorrected word substitutions Although every attempt has been made by the provider to proofread this document, occasional misspellings and typographical errors may still be present Due to the previous pandemic, and the use of personal protective equipment (PPE) This may decrease voice recognition accuracy Inadvertent mail examiner errors may occur 11/27/2024 Lumbago with sciatic a, right side (ICD-10 - M54.41) Acute Concerns/Problem List: 11/27/2024 Patient has been [...] in Coronary Calcium CT, will RX to [facility] [place] Refilled Wixela, Fluticasone Propionate Suspension. _update Cologuard Of note, some information is being carried forward from prior records for informational purposes only and is being cited so that efficiency, safety and quality of the patient's care is not compromised This note was prepared using voice recognition software and direct typing Please excuse inadvertent mail examiner or typing errors, or uncorrected word substitutions Although every attempt has been made by the provider to proofread this document, occasional misspellings and typographical errors may still be present Due to the previous pandemic, and the use of personal protective equipment (PPE) This may decrease voice recognition accuracy Inadvertent mail examiner errors may occur 06/28/2024 Lumbago with sciatic a, right side (ICD-10 - M54.41) Acute Concerns/Problem List: 06/28/2024 labs reviewed Patient Interested in Coronary Calcium CT, will RX to [facility] [place] Refilled Wixela, Fluticasone Propionate Suspension. _update Cologuard Of note, some information is being carried forward from prior records for informational purposes only and is being cited so that efficiency, safety and quality of the patient's care is not compromised This note was prepared using voice recognition software and direct typing Please excuse inadvertent mail examiner or typing errors, or uncorrected word substitutions Although every attempt has been made by the provider to proofread this document, occasional misspellings and typographical errors may still be present Due to the previous pandemic, and the use of personal protective equipment (PPE) This may decrease voice recognition accuracy Inadvertent mail examiner errors may occur 10/01/2024 Lumbago with sciatic a, right side (ICD-10 - M54.41) Acute Concerns/Problem List: 06/28/2024 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 _update Cologuard Of note, some information is being carried forward from prior records for informational purposes only and is being cited so that efficiency, safety and quality of the patient's care is not compromised This note was prepared using voice recognition software and direct typing Please excuse inadvertent mail examiner or typing errors, or uncorrected word substitutions Although every attempt has been made by the provider to proofread this document, occasional misspellings and typographical errors may still be present Due to the previous pandemic, and the use of personal protective equipment (PPE) This may decrease voice recognition accuracy Inadvertent mail examiner errors may occur 06/28/2024 Encounter for examination of blood pressure without abnormal findings (ICD-10 - Z01.30) Acute Concerns/Problem List: 06/28/2024 labs reviewed Patient Interested in Coronary Calcium CT, will RX to [facility] [place] Refilled Wixela, Fluticasone Propionate Suspension. _update Cologuard Of note, some information is being carried forward from prior records for informational purposes only and is being cited so that efficiency, safety and quality of the patient's care is not compromised This note was prepared using voice recognition software and direct typing Please excuse inadvertent mail examiner or typing errors, or uncorrected word substitutions Although every attempt has been made by the provider to proofread this document, occasional misspellings and typographical errors may still be present Due to the previous pandemic, and the use of personal protective equipment (PPE) This may decrease voice recognition accuracy Inadvertent mail examiner errors may occur 10/01/2024 Encounter for examination of blood pressure without abnormal findings (ICD-10 - Z01.30) Acute Concerns/Problem List: 06/28/2024 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 _update Cologuard Of note, some information is being carried forward from prior records for informational purposes only and is being cited so that efficiency, safety and quality of the patient's care is not compromised This note was prepared using voice recognition software and direct typing Please excuse inadvertent mail examiner or typing errors, or uncorrected word substitutions Although every attempt has been made by the provider to proofread this document, occasional misspellings and typographical errors may still be present Due to the previous pandemic, and the use of personal protective equipment (PPE) This may decrease voice recognition accuracy Inadvertent mail examiner errors may occur 11/27/2024 Encounter for examination of blood pressure without abnormal findings (ICD-10 - Z01.30) Acute Concerns/Problem List: 11/27/2024 Patient has been [...] in Coronary Calcium CT, will RX to [facility] [place] Refilled Wixela, Fluticasone Propionate Suspension. _update Cologuard Of note, some information is being carried forward from prior records for informational purposes only and is being cited so that efficiency, safety and quality of the patient's care is not compromised This note was prepared using voice recognition software and direct typing Please excuse inadvertent mail examiner or typing errors, or uncorrected word substitutions Although every attempt has been made by the provider to proofread this document, occasional misspellings and typographical errors may still be present Due to the previous pandemic, and the use of personal protective equipment (PPE) This may decrease voice recognition accuracy Inadvertent mail examiner errors may occur 10/01/2024 Seasonal allergic rhinitis, unspecified trigger (ICD-10 - J30.2) Acute Concerns/Problem List: 06/28/2024 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 _update Cologuard Of note, some information is being carried forward from prior records for informational purposes only and is being cited so that efficiency, safety and quality of the patient's care is not compromised This note was prepared using voice recognition software and direct typing Please excuse inadvertent mail examiner or typing errors, or uncorrected word substitutions Although every attempt has been made by the provider to proofread this document, occasional misspellings and typographical errors may still be present Due to the previous pandemic, and the use of personal protective equipment (PPE) This may decrease voice recognition accuracy Inadvertent mail examiner errors may occur 11/27/2024 Seasonal allergic rhinitis, unspecified trigger (ICD-10 - J30.2) Acute Concerns/Problem List: 11/27/2024 Patient has been [...] in Coronary Calcium CT, will RX to [facility] [place] Refilled Wixela, Fluticasone Propionate Suspension. _update Cologuard Of note, some information is being carried forward from prior records for informational purposes only and is being cited so that efficiency, safety and quality of the patient's care is not compromised This note was prepared using voice recognition software and direct typing Please excuse inadvertent mail examiner or typing errors, or uncorrected word substitutions Although every attempt has been made by the provider to proofread this document, occasional misspellings and typographical errors may still be present Due to the previous pandemic, and the use of personal protective equipment (PPE) This may decrease voice recognition accuracy Inadvertent mail examiner errors may occur 06/28/2024 Seasonal allergic rhinitis, unspecified trigger (ICD-10 - J30.2) Acute Concerns/Problem List: 06/28/2024 labs reviewed Patient Interested in Coronary Calcium CT, will RX to [facility] [place] Refilled Wixela, Fluticasone Propionate Suspension. _update Cologuard Of note, some information is being carried forward from prior records for informational purposes only and is being cited so that efficiency, safety and quality of the patient's care is not compromised This note was prepared using voice recognition software and direct typing Please excuse inadvertent mail examiner or typing errors, or uncorrected word substitutions Although every attempt has been made by the provider to proofread this document, occasional misspellings and typographical errors may still be present Due to the previous pandemic, and the use of personal protective equipment (PPE) This may decrease voice recognition accuracy Inadvertent mail examiner errors may occur Plan Of Treatment Pending Test Test Name Order Date 25OH VITAMIN D 01/13/2023 CBC (COMPLETE BLOOD COUNT) 01/13/2023 COMPREHENSIVE METABOLIC PANEL 01/13/2023 HEMOGLOBIN A1C 01/13/2023 LIPID PANEL 06/12/2021 LIPID PANEL 01/13/2023 PSA, SCREEN 01/13/2023 TSH 01/13/2023 URINALYSIS W/REFLEX CULTURE 01/13/2023 MRI L-Spine w/o Contrast 08/30/2023 Cologuard 05/19/2021 Cologuard 06/28/2024 LIPID PANEL, STANDARD 06/16/2024 COMPREHENSIVE METABOLIC PANEL 06/16/2024 CBC (INCLUDES DIFF/PLT) 06/16/2024 URINALYSIS, COMPLETE 06/16/2024 HEMOGLOBIN A1c 06/16/2024 PSA (FREE AND TOTAL) 06/16/2024 TSH 06/16/2024 VITAMIN D,25-OH,TOTAL,IA 06/16/2024 Future Test Test Name Order Date 25OH VITAMIN D 06/16/2021 CBC (COMPLETE BLOOD COUNT) WITH DIFF 11/2021 COMPREHENSIVE METABOLIC PANEL 06/16/2021 HEMOGLOBIN A1C 06/16/2021 LIPID PANEL 06/16/2021 MICROALBUMIN, URINE 06/16/2021 PSA, SCREEN 06/16/2021 TSH WITH REFLEX TO FT4 06/16/2021 URINALYSIS W/REFLEX CULTURE 06/16/2021 25OH VITAMIN D 06/25/2022 CBC (COMPLETE BLOOD COUNT) WITH DIFF COMPREHENSIVE METABOLIC PANEL 06/25/2022 HEMOGLOBIN A1C 06/25/2022 LIPID PANEL 06/25/2022 MICROALBUMIN, URINE 06/25/2022 PSA, SCREEN 06/25/2022 TSH WITH REFLEX TO FT4 06/25/2022 URINALYSIS W/REFLEX CULTURE 06/25/2022 Insurance Providers Payer Name Payer Address Payer Phone Subscriber Number Group Number Insured Name Patient Relationship to Insured Coverage Start Date Coverage End Date [facility] [address] [place] [address] [id number] SAM KU Self - patient is the insured Medical (General) History Medical History History ICD Code hypertension type II diabetes allergic rhinitis asthma Surgical History Surgery Date(Month/Year) lower back mason shoulder right knee laminectomy
--- OUTSIDE RECORDS SUMMARY | 2024-11-30 14:56 | XMS_ITS ---
Continuity of Care Document (CCD) Created on: November 30, 2024 Balaji Abrams External Reference #: [id number] Sex: Male Author Organization [facility] [address] [place] [address] Phone [phone] Care Team Providers Care Flash Developer Name Role Phone Srini Mahmood M.D. Care Team Information Diffuser Operator [phone] Problems Active Problems Provider Date Type 2 diabetes mellitus Tia Hartmann M.D. Onset: 09/10/2021 Essential hypertension Tia rahman M.D. Onset: 09/10/2021 Pure hypercholesterolemia Tia Barba M.D. Onset: 09/10/2021 Nonalcoholic steatohepatitis Tia Chiu M.D. Onset: 09/10/2021 Obesity Tia hopkins M.D. Onset: 09/10/2021 Asthma Tia hopkins M.D. Onset: 09/10/2021 Erectile dysfunction Tia mcneil M.D. Onset: 09/10/2021 Degeneration of lumbar inter vertebral disc Tia Mcdonald M.D. Onset: 09/10/2021 Osteoarthritis of knee Tia rahman M.D. 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 Tobacco Use Start: Unknown Currently Smokes an Occasi onal Cigar ETOH Use Occasionally consumes alcoho l Tobacco Use Start: Unknown Patient is a current smoke r, smokes some days cigars Allergies and adverse reactions Active Allergies Criticality Reaction Severity Comments Date Penicillin V Unable to assess criticality 09/10/2021 Shellfish-Derived Products Unable to assess criticality 09/10/2021 Medications Active Medications SIG Qnty Indications Order ing Provider Date [place] Syr/NDL 31G 1ML5/16 (8mm) Use One Syringe Under The Skin Three Times Daily as Directed 300units Marianela Mcdonald M.D. 02/22/2024 Z79.4 Tpdsyvr622Mxrz/ML Solution inject 26 to 33 units under the skin before supper as directed 30ml Marianela Mcdonald M.D. Allergy [id number] Tablets Take 1 Tablet By Mouth Every Day Unknown Fluticasone Fhjxqxyeih71hwh/Act Suspension Elberta Twice In Each Nostril Every Day Nasally Once A Day Unknown Wixela [id number]/Act Aerosol Use 1 Inhalation By Mouth Twice Daily Unknown Humalog Mix 75/25(75-25)100Unit/ML Suspension administer 60 units under the skin every day 60ml Marianela Mcdonald M.D. Insulin Syringe/1ML/30G X 5/16 30G X 5/16 1 ML Misc use 1 syringe under the skin three times daily as directed DX: E11.9 300units Marianela Mcdonald M.D. Humulin O357Nrfd/ML Suspension Administer 66 Units Under The Skin Every Night 60units Marianela Mcdonald M.D. Z79.4 Atorvastatin Ufknfky00ft Tablets Take 1 Tablet By Mouth Every Day Unknown Freestyle Lite Blood Glucose Monitoring Systemw/Device Kit Use as Directed For Testing Blood Sugars Tia Mcdonald M.D. [id number] Tablets Take 1 Tablet By Mouth Every Day Unknown Albuterol Sulfate RAB598(90Base) mcg/Act Aerosol Inhale 2 Puffs By Mouth Every 4 Hours as Needed Unknown Epinephrine0.3mg/0.3ML Solution Auto-Inject as Directed as Needed For Anaphylaxis Unknown Trueplus Insulin Syringe/U-100/1ML/30G X 16 30G X 16 1 ML [facility] Tia Mcdonald M.D. Freestyle Lite TestStrips Test as Directed Three Times Daily 300units E11.9 Tia Mcdonald M.D. Aspirin Ec Low Wjdk66vt Tablets DR 1 by mouth every day Tayler Mcdonald M.D. Vital Signs Date Vital Result Comment 11/15/2024 9:30am BP Systolic 130 mmHg BP Diastolic 76 mmHg Results Test Acquired Date Facility Test Result H/L Range Note Hemoglobin A1c 11/15/2024 Inhouse Hemoglobin A1c 7.0 Glucose Fingerstick 11/15/2024 Inhouse Glucose Fingerstick 104 Glucose Fingerstick 07/04/2024 Inhouse Glucose Fingerstick 171 Albumin/Creatin ine Ratio, Random Urine 02/29/2024 [facility] Creatinine, Urine 125.5 mg/dL Not Estab. Albumin, Urine 10.0 ug/mL Not Estab. Alb/Creat Ratio 8 mg/gcreat 0-29 1 Comp. Metabolic Panel (14) 02/24/2024 [facility] Glucose 107 mg/dL High 70-99 BUN 19 mg/dL 6-24 Creatinine 0.94 mg/dL 0.76-1.2 7 eGFR 93 mL/min/1.7 3 >59 BUN/Creatinine Ratio 20 9-20 Sodium 137 mmol/L 134-144 Potassium 4.4 mmol/L 3.5-5.2 Chloride 102 mmol/L 96-106 Carbon Dioxide, Total 22 mmol/L 20-29 Calcium 9.7 mg/dL 8.7-10.2 Protein, Total 6.9 g/dL 6.0-8.5 Albumin 4.1 g/dL 3.8-4.9 Globulin, Total 2.8 g/dL 1.5-4.5 Bilirubin, Total 0.4 mg/dL 0.0-1 .2 Alkaline Phosphatase 102 IU/L 44-121 Ast (Sgot) 34 IU/L 0-40 Alt (SGPT) 41 IU/L 0-44 Lipid Panel 02/24/2024 [facility] Cholesterol, Total 228 mg/dL High 100-199 Triglycerides 77 mg/dL 0-149 HDL Cholesterol 49 mg/dL >39 VLDL Cholestero l [place] 13 mg/dL 5-40 LDL Chol Calc ([facility]) 166 mg/dL High 0-99 LDL Calc Comment: TNP Glucose Fingerstick 02/24/2024 Inhouse Glucose Fingerstick 127 Hemoglobin A1c 02/24/2024 Inhouse Hemoglobin A1c 7.1% Hemoglobin A1c 10/20/2023 Inhouse Hemoglobin A1c 7.0% Glucose Fingerstick 10/20/2023 Inhouse Glucose Fingerstick 99 Glucose Fingerstick 05/05/2023 Inhouse Glucose Fingerstick 106 Hemoglobin A1c 05/05/2023 Inhouse Hemoglobin A1c 9.0% Glucose Fingerstick 09/08/2022 Inhouse Glucose Fingerstick 121 Hemoglobin A1c 09/08/2022 Inhouse Hemoglobin A1c 7.1% Hemoglobin A1c 01/06/2022 [facility] Hemoglobin A1c 8.6 % High (4.0-5.6 ) 2 Glucose Fingerstick 01/06/2022 Inhouse Glucose Fingerstick 188 Glucose Fingerstick 09/10/2021 Inhouse Glucose Fingerstick 125 Hemoglobin A1c 09/10/2021 Inhouse Hemoglobin A1c 7.8 1 Normal: 0 - 29 Moderately increased: 30 - 300 Severely increased: >300 2 MONITORING: In known diabetic patients, hemoglobin A1c targets should be discussed with health care provider. DIAGNOSTIC USE: The [place] [employer] (ADA) and the World Health Organization (WHO) recommend the use of HbA1c to diagnose diabetes using a threshold of 6.5%. Patients who have an HbA1c between 5.7% and 6.4% are considered at increased risk for developing diabetes in the future. CAUTION: Falsely low HbA1c results may be observed in patients with hemolytic anemia, homozygous forms of abnormal hemoglobin (e.g. SS, CC, SC), , recent blood loss or hemoglobin F greater than 7%. Fructosamine may be used as an alternate test in these cases. REFERENCE: ADA: Standards of Medical Care in Diabetes 2020, The Journal of Clinical and Applied Research and Education Volume 43, Supplement 1 Procedures Date Code Description Status 02/24/2024 44185 Collection Of Venous Blood B y Venipuncture Completed 01/06/2022 47546 Collection Of Venous Blood B y Venipuncture Completed Medical Devices Description No Information Available Encounters Type Date Location Provider Dx Diagnosis Office Visit 11/15/2024 8:45a Main Office Tia Mcdonald M.D. E11.9 Type 2 diabetes mellitus without complications E78.00 Pure hypercholestero lemia, unspecified Z79.4 [facility] (current) use of insulin I10 Essential (primary) hypertension K75.81 Nonalcoholic steatoh epatitis ([place]) Z68.42 Body mass index [BMI ] 45.0-49.9, adult Assessments Date Code Description Provider 11/15/2024 E11.9 Type 2 diabetes mellitus without complications Tia Mcdonald M.D. 11/15/2024 E78.00 Pure hypercholesterolemia, u nspecified Tia Mcdonald M.D. 11/15/2024 Z79.4 [facility] (current) use of i nsulin Tia Mcdonald M.D. 11/15/2024 I10 Essential (primary) hyperten ekaterina Tia Mcdonald M.D. 11/15/2024 K75.81 Nonalcoholic steatohepatitis ([place]) Tia Mcdonald M.D. 11/15/2024 Z68.42 Body mass index [BMI] 45.0-4 9.9, adult Tia Mcdonald M.D. Plan of Treatment Future Appointment(s):* 01/25/2025 2:15 pm - Tia Mcdonald M.D. at Main Office 11/15/2024 - Tia Mcdonald M.D.* E11.9 Type 2 diabetes mellitus without complications * E78.00 Pure hypercholesterolemia, unspecified * Z79.4 [facility] (current) use of insulin * I10 Essential (primary) hypertension * K75.81 Nonalcoholic steatohepatitis ([place]) * Z68.42 Body mass index [BMI] 45.0-49.9, adult Functional Status Description No Information Available Mental Status Description No Information Available Referrals Description No Information Available
== END 2024-11-30 12:55 | disposition home or self-care (01) ==
LOC: HO.NEURO 12:54
PROVIDERS: PCP Internal Medicine; Visit Provider Physician Assistant
DX: R20.0 Anesthesia of skin (principal); R20.2 Paresthesia of skin
CPT/HCPCS: 95886; 95909

== ENCOUNTER → 2024-11-30 13:00 | Outpatient (BNV) | payer OTHER, SELFPAY | PROVIDERS: PCP Internal Medicine; Visit Provider Physical Medicine & Rehabilitation | DX: G56.12 Other lesions of median nerve, left upper limb (principal); G56.22 Lesion of ulnar nerve, left upper limb | CPT/HCPCS: 95886; 95909 ==